=== PATIENT | female | born 1970 | race Caucasian/White ===

== ENCOUNTER 2017-09-28 09:12 | Emergency (ER) | payer MEDICARE, MEDICAID, SELFPAY ==
[2017-09-28 09:18] VITALS: BP 127/98; PULSE 90; RESP 23; TEMP 36.9; O2SAT 98; BMI 31.3
[2017-09-28 09:22] VITALS: BP 127/98; PULSE 95; RESP 18; TEMP 36.9; O2SAT 97
--- NOTE | 2017-09-28 09:39 | ED.DCSUM_ITS ---
- ER Visit Summary Date of Service: 09/28/17 Chief Complaint: Syncope History of Present Illness: The patient is a [address] Morrison. She reports that she had surgery on her left wrist August 05. Since that time she has had multiple episodes of syncope. States that some days this does not happen at all. Some days she wakes up on the floor 1-2 hours later. This can occur when she is standing or sitting. She does admit to being lightheaded at times and it does worsen once he stands. She denies any chest pain, palpitations, shortness of breath. Review of systems: General: No fever, chills, cold sweats. Cardiovascular: No chest pain, palpitations. Respiratory: No cough, shortness of breath, dyspnea on exertion. Gastrointestinal: No abdominal pain, nausea, vomiting, diarrhea, melena, or hematochezia. Genitourinary: No dysuria, frequency, hematuria. Skin: No rash. Neuro: No headache, numbness, weakness. Physical Examination: Vitals: Stable. Afebrile. General: Well-nourished and well-developed. Head: Normocephalic atraumatic. Neck: Supple, no lymphadenopathy. No JVD. Nontender. Cardiovascular: Regular rate and rhythm. No murmurs. Respiratory: No respiratory distress. Clear to auscultation bilaterally. Abdominal: Soft, nontender, nondistended, normal bowel sounds. No guarding, rebound, or peritoneal signs. Back: Nontender. Extremities: Nontender, no edema. Skin: Normal color, no rash. Neurologic: Alert and oriented ?3. Cranial nerves II through XII are intact. Normal strength and sensation. Psych: Normal affect. Test Results: EKG is sinus at [address] changes. This is unchanged from March 2016. Emergency Department Course and Treatment: Patient has refused an IV and blood work. States that she needs to leave in for 30 minutes. I discussed her the fact that the blood work would not be done by that time. She has prior commitments that she cannot miss. She does understand that this could be a problem with the rhythm of her heart, due to a blood clot, and/or life- threatening. She is capable of understanding and repeating this. She is able of signing out AGAINST MEDICAL ADVICE. Treatment Plan: Patient reports that after this appointment she is going to go to another emergency department closer to home. She is instructed to follow-up as soon as possible. Return to the emergency department at any time for evaluation. Disposition: To home in improved and stable condition. Impression: 1. Syncope, recurrent. 2. History of PE on Coumadin. 3. Left AMA. This note was generated with [employer] dictation software. It may contain incorrect words, spelling, and punctuation that were not noted in review of the chart prior to signing ED Disposition - Plan for ED Patient: Chief Complaint: Syncope Instructions: ED Fainting Unkn Cause Referrals: Luis Miguel Morrison MD [Primary Care Provider] - As soon as possible
--- NOTE | 2017-09-28 10:32 | EKG12_ITS ---
Test Reason : SYNCOPE Blood Pressure : / mmHG Vent. Rate : 097 BPM Atrial Rate : 097 BPM P-R Int : 158 ms QRS Dur : 088 ms QT Int : 378 ms P-R-T Axes : 055 067 058 degrees QTc Int : 480 ms Normal sinus rhythm Prolonged QT Abnormal ECG Confirmed by KAYKAY ESCALANTE ([id number]), editor trade journal LYNNE CESAR ([id number]) on 10/02/2017 9:48:53 AM Referred By: JA Confirmed By:KAYKAY ESCALANTE
== END 2017-09-28 11:50 | disposition left against medical advice (07) ==
LOC: ED 10:58
PROVIDERS: Emergency Provider Emergency Medicine; Family Provider Family Medicine; PCP Family Medicine
DX: R55 Syncope and collapse (principal); Z86.711 Personal history of pulmonary embolism; Z86.718 Personal history of other venous thrombosis and embolism; Z79.01 Long term (current) use of anticoagulants; E03.9 Hypothyroidism, unspecified; K21.9 Gastro-esophageal reflux disease without esophagitis; Z79.899 Other long term (current) drug therapy
CPT/HCPCS: 93005; 99284

== ENCOUNTER → 2018-07-03 15:40 | Outpatient (CLI) | payer MEDICARE, SELFPAY ==
[2018-07-03 16:05] LABS: International Normalized Ratio 0.9; Prothrombin Time (Protime)PT. 12.3 SECONDS (11.7-14.9)
== END ==
PROVIDERS: Family Provider Family Medicine; PCP Family Medicine; Referring Provider Family Medicine; Visit Provider Family Medicine
DX: D68.59 Other primary thrombophilia (principal)
CPT/HCPCS: 85610

== ENCOUNTER → 2018-07-08 14:37 | Outpatient (CLI) | payer MEDICARE, SELFPAY ==
[2018-07-08 16:22] LABS: International Normalized Ratio 1.6; Prothrombin Time (Protime)PT. 19.2 SECONDS (11.7-14.9)
== END ==
PROVIDERS: Family Provider Family Medicine; PCP Family Medicine; Referring Provider Family Medicine; Visit Provider Family Medicine
DX: D68.59 Other primary thrombophilia (principal); Z79.01 Long term (current) use of anticoagulants
CPT/HCPCS: 85610

== ENCOUNTER → 2018-07-13 10:59 | Outpatient (CLI) | payer MEDICARE, SELFPAY ==
[2018-07-13 11:36] LABS: International Normalized Ratio 1.3; Prothrombin Time (Protime)PT. 15.7 SECONDS (11.7-14.9)
== END ==
PROVIDERS: Family Provider Family Medicine; PCP Family Medicine; Referring Provider Family Medicine; Visit Provider Family Medicine
DX: D68.59 Other primary thrombophilia (principal); Z79.01 Long term (current) use of anticoagulants
CPT/HCPCS: 36415; 85610

== ENCOUNTER → 2018-07-23 16:35 | Outpatient (CLI) | payer MEDICARE, SELFPAY ==
[2018-07-23 17:11] LABS: International Normalized Ratio 2.2; Prothrombin Time (Protime)PT. 24.4 SECONDS (11.7-14.9)
== END ==
PROVIDERS: Family Provider Family Medicine; PCP Family Medicine; Referring Provider Family Medicine; Visit Provider Family Medicine
DX: Z79.01 Long term (current) use of anticoagulants (principal); D68.59 Other primary thrombophilia
CPT/HCPCS: 85610

== ENCOUNTER → 2018-08-05 16:05 | Outpatient (CLI) | payer MEDICARE, SELFPAY ==
[2018-08-05 16:51] LABS: International Normalized Ratio 1.3; Prothrombin Time (Protime)PT. 16.5 SECONDS (11.7-14.9)
== END ==
PROVIDERS: Family Provider Family Medicine; PCP Family Medicine; Referring Provider Family Medicine; Visit Provider Family Medicine
DX: D68.59 Other primary thrombophilia (principal); Z79.01 Long term (current) use of anticoagulants
CPT/HCPCS: 85610

== ENCOUNTER → 2018-12-12 07:48 | Outpatient (CLI) | payer MEDICARE, MEDICAID, SELFPAY ==
[2018-11-22 08:22] VITALS: BMI 35.2
--- NOTE | 2018-12-12 | ASPIG_PTH ---
PATIENT: WINSTON BOWLING LOC: U#:[id number] AGE/SX: 55/F ROOM: RE12/12/[address]: Dr. Isaias Paredes MD : 1970 BED: DIS: SPEC #: [id number] RECD: 12/12/18 12:23 STATUS: ANA REDagoberto #: [id number] FRANK: 12/12/18 00:[address]: Isaias Paredes DEPT: CYTOLOGY RECD BY: Raj Yoo ENTERED: 12/12/18 12:24 SP TYPE: ASP OUT OTHR DR: Dr. Luis Miguel Trujillo MD Tissues: A - Thyroid gland, NOS B - Thyroid gland, NOS Procedures: FNA Specimen Adequacy Special Stain Group II Surgery Specimen Level IV Cytology Other HEADER OPERATION: Ultrasound-guided FNA of thyroid PRE-OP DIAGNOSIS: Thyroid nodule TISSUE SUBMITTED: A - Left thyroid, B - Isthmus DIAGNOSIS CYTOLOGY A. Left thyroid nodule, ultrasound-guided FNA (smears, cytospin and cell block): Atypical follicular cells of undetermined significance. Adequate for evaluation. B. Isthmic nodule, ultrasound-guided FNA (smears, cytospin and cell block): Cellular smears, suspicious for follicular neoplasm. Adequate for evaluation. SJ:rg 12/13/18 COMMENT The specimen is evaluated at the time of FNA by Dr. Batista. Immediate Evaluation: A. Adequate for evaluation. Follicular cells present. B. Adequate for evaluation. Follicular cells present. Correlation with clinical, radiologic findings and appropriate follow up are necessary. Case has been reviewed in consultation with Dr. Hart who concurs with the above diagnosis. IDC:AM CYTOLOGY STUDY Slides are reviewed. CYTOLOGY GROSS A - Received in three passes is 0.5 ml of bloody fluid labeled with the patient's name, and designated left thyroid. Nine imprints and six paps are made from the submitted fluid and the rest is added to CytoLyt for cell block preparation. Submitted for cytology study. B - Received in three passes is 0.5 ml of bloody fluid labeled with the patient's name, and designated isthmus. Eight imprints and seven paps are made from the submitted fluid and the rest is added to CytoLyt for cell block preparation. Submitted for cytology study. / SJ:rg 12/12/18 TC:5 CPT: 91432 x2, 47469 x2, 27861 x2, 37170 x2 ADDENDUM ADDENDUM ADDENDUM ADDENDUM ADDENDUM ADDENDUM ADDENDUM ADDENDUM ADDENDUM ADDENDUM ADDENDUM ADDENDUM ADDENDUM ADDENDUM ADDENDUM 01/02/2019 11:01 ADDENDUM 01/02/2019 11:01 ADDENDUM 01/02/2019 11:01 ADDENDUM 01/02/2019 11:01 ADDENDUM 01/02/2019 11:01 This addendum is added to incorporate an outside pathology consultation report. The case was examined at [facility] (#[id number]) and the following diagnosis was rendered. A. Thyroid, left nodule, ultrasound-guided fine needle aspiration: Benign. [place] follicular epithelium, colloid, rare lymphocytes and plasma cell. B. Isthmus nodule, ultrasound-guided fine needle aspiration: Benign. Moderately cellular aspirate with bland follicular epithelium, oncocytes, colloid and lymphocytes. Please see complete above mentioned consultation report in EMR
--- NOTE | 2018-12-12 07:54 | US_ITS ---
STUDY: THYROID ULTRASOUND REASON FOR EXAM: Female, 48 years old. Ultrasound guided needle biopsy of a nodule in the isthmus as well as the left lobe of the thyroid. TECHNIQUE: Ultrasound evaluation of the thyroid was performed with real-time and static lenz-scale imaging. COMPARISON: None. FINDINGS: Under direct sonographic guidance, the surgeon performed needle biopsy of the echogenic nodule in the left lobe of the thyroid as well as in the right side of the isthmus. US/FNA 1st Biopsy w/ US IMPRESSION: Successful ultrasound-guided thyroid biopsy. Electronically Signed: Juan Deleon, at 15:09 EDT , Service support ,
--- NOTE | 2018-12-12 09:42 | PCM.OPRPT ---
Problem List (1) Multinodular goiter (nontoxic) Status: Acute Report of Operation Date of Procedure: 12/12/18 Pre-Operative Diagnosis: Multinodular goiter Post-Operative Diagnosis: Same Surgery/Procedure Performed:: Bilateral ultrasound-guided fine-needle aspiration of multinodular goiter Type of Anesthesia:: Local Description of Procedure: Patient was brought into the ultrasound suite left side of the neck was ultrasound lesion was identified. I prepped the neck with Betadine. I injected 1% lidocaine plain. Under ultrasound guidance I took 3 passes with a 22-gauge needle gave them to the pathologist. Ultrasounding the right side of the isthmus the nodule was identified I injected 1% lidocaine plain under ultrasound guidance I took 3 passes with a 22-gauge needle. I gave this to the pathologist. Pathologist said both specimens were adequate. Sterile dressings were applied and the patient tolerated the procedure well - Admit VTE Documentation VTE Present on Admission: No VTE Mechan Device Prophylaxis: None VTE Pharm Prophylaxis ordered?: No Reason prophylaxis not ordered:: Treatment Not Indicated
== END ==
PROVIDERS: Family Provider Family Medicine; PCP Family Medicine; Referring Provider Surgery; Visit Provider Surgery
DX: E04.2 Nontoxic multinodular goiter (principal)
CPT/HCPCS: 10005; 10006; 88161; 88172; 88305; 88313

== ENCOUNTER → 2019-07-11 12:09 | Outpatient (CLI) | payer MEDICARE, MEDICAID, SELFPAY ==
[2018-12-17 09:44] VITALS: BMI 35.2
[2019-07-11 12:32] LABS: International Normalized Ratio 2.9; Prothrombin Time (Protime)PT. 30.5 SECONDS (11.7-14.9)
== END ==
PROVIDERS: Family Provider Family Medicine; PCP Family Medicine; Referring Provider Registered Nurse; Visit Provider Registered Nurse
DX: D68.59 Other primary thrombophilia (principal)
CPT/HCPCS: 85610

== ENCOUNTER 2022-07-06 12:46 | Inpatient (IN) | payer MEDICARE, MEDICAID, SELFPAY ==
[2022-07-06] VITALS (16 sets, daily range): BP systolic 91–125; BP diastolic 76–88; PULSE 90–119; RESP 12–26; TEMP 36.3–36.7; O2SAT 94–100; BMI 36.5; BMI 37.7
--- NOTE | 2022-07-06 13:32 | EKG12_ITS ---
Test Reason : SOB Blood Pressure : / mmHG Vent. Rate : 099 BPM Atrial Rate : 099 BPM P-R Int : 148 ms QRS Dur : 084 ms QT Int : 366 ms P-R-T Axes : 033 058 057 degrees QTc Int : 469 ms Normal sinus rhythm Low voltage QRS Borderline ECG Confirmed by SANAM JOHN, SHIMON ([id number]), editor publications NAEEM PANTOJA ([id number]) on 07/10/2022 1:12:33 PM Referred By: CLARISSA Confirmed By:SHIMON MARION MD
[2022-07-06] MEDS: Albuterol 2.5 MG/3 ML VIAL.NEB. INHALATION ×2 (13:43→16:05)
[2022-07-06] MEDS: Ipratropium/Albuterol Sulfate 3 ML AMPUL.NEB INHALATION ×3 (13:43→23:20)
--- NOTE | 2022-07-06 13:57 | RAD_ITS ---
STUDY: X-RAY CHEST REASON FOR EXAM: Female, 52 years old. SOB and sore throat. TECHNIQUE: Single AP portable view of the chest. COMPARISON: Comparison is made with prior study dated 08/27/2015. FINDINGS: EKG electrodes are seen. The lungs are clear and expanded. There is no demonstrated pleural abnormality. Normal size heart. Normal mediastinum and pawan. Normal visualized pulmonary arteries. Normal visualized aortic arch and descending thoracic aorta. Normal visualized thoracic spine. Normal visualized ribs, clavicles, and shoulders. There is evidence of a hiatal hernia. RAD/Chest 1 View (Portable) IMPRESSION: I have hernia. The lungs are clear. Electronically Signed: Juan Deleon MD at 14:16 EDT ,
[2022-07-06] MEDS: MethylPREDNISolone 125 MG/2 ML Vial IV (14:01)
[2022-07-06 14:07] LABS: Absolute Lymphocyte Count 1.89 X10^3/uL (0.83-4.51); Absolute Neutrophil Count 4.6 X10^3/uL (2.0-7.7); Basophil# 0.06 X10^3/uL; Basophil% 0.8 % (0-1); Eosinophil# 0.31 X10^3/uL; Eosinophils% 3.9 % (0-5); Hematocrit 47.8 % (37-47); Hemoglobin 15.9 g/dL (12.0-15.0); Lymphocyte # 1.89 X10^3/ul (0.83-4.51); Mean Corp Hgb Conc 33.3 g/dL (32-36); Mean Corpuscular Hgb 30.5 pg (27.0-32.0); Mean Corpuscular Volume 91.6 fL (81-99); Mean Platelet Vol. 9.7 fl (6.2-12.0); Monocyte# 0.96 X10^3/uL; Monocyte% 12.2 % (0-10); NRBC Flagged by Analyzer 0 % (0-5); Neutrophil # 4.61 X10^3/uL (2.7-7.7); Neutrophil % 58.7 % (47-70); Platelet Count 279 K/mm3 (150-450); RBC Distribution Width CV 13.5 % (11.6-14.6); RBC Distribution Width SD 46.2 fl (35.1-43.9); Red Blood Count 5.22 M/mm3 (4.2-5.4); White Blood Count 7.9 K/mm3 (4.4-11.0)
[2022-07-06 14:25] LABS: Anion Gap 8 (5-15); BUN 17 mg/dL (7-18); BUN/Creat Ratio 15.2 RATIO (10-20); Calcium,Total 9.3 mg/dL (8.5-10.1); Chloride 105 mmol/L (98-107); Creatinine, Serum 1.12 mg/dL (0.55-1.02); EST Glomerular Filtration Rate 55 mL/min (>60); Est Glom Filt Rate - Afr Amer 66 mL/min (>60); Estimated Creatinine Clearance 60.62 ml/min; Glucose 101 mg/dL (74-106); Potassium 3.6 mmol/L (3.5-5.1); Sodium Level 140 mmol/L (136-145); Troponin-I HS 4 pg/mL (3.0-54.0)
[2022-07-06 14:27] LABS: International Normalized Ratio 2.6; Prothrombin Time (Protime)PT. 27.5 SECONDS (11.7-14.9)
[2022-07-06 14:32] LABS: Lactic Acid 1.6 mmol/L (0.4-1.9)
--- NOTE | 2022-07-06 15:52 | PCM.HP.STD ---
[facility] - General General Date of Admission: 07/06/22 Date of Service: 07/06/22 Chief Complaint: Dyspnea, cough, sore throat, hypoxia at UC 83% on RA. HPI Narrative The patient is a 52 y/o F w/ PMHx: Obesity, Anxiety and Depression/Histrionic personality disorder, Hx VTE (PE, DVT), Asthma, Tobacco use, Hx Hypercoagulable state, Diabetes mellitus type II with neuropathy, Thyroid CA s/p partial thyroidectomy with resulting hypothyroidism, Hx prior R lung abscess, EDITH, GERD who presents to the [facility] ED on 07/06/22 with history of 2 to 3-day history of progressively worsening fatigue, malaise, sore throat, cough as well as dyspnea and wheezing with urgent care evaluation on day of presentation with noted oxygenation 83% on room air at that time with EMS call with DuoNeb's administered on route. Work-up in the ED included T97.4, heart rate initially 119, BP 95/77, respiratory rate 24, initially noted to be 99% on 15 L simple mask with reportedly 83% oxygenation outside urgent care facility prior to transition, currently 96% on 4 L nasal cannula, CBC with WBC 7.9, hemoglobin 15.9, platelet 279 without marked shift, INR 2.6, BMP with BUN/creat 17/1.12, lactic acid 1.6, troponin 4, rapid COVID antigen and influenza negative, chest x-ray with no acute cardiopulmonary findings, evidence of hiatal hernia, full respiratory viral panel pending per ED physician. In the ED patient ministered Solu-Medrol 125 mg IV x1, DuoNeb therapy and albuterol. [facility] Medical History (Updated 07/06/22 @ 18:[address] Soha Herrmann MD) Anxiety Asthma Diabetes mellitus type 2 in obese Diabetic neuropathy DJD (degenerative joint disease) DM2 (diabetes mellitus, type 2) Fatty liver disease, nonalcoholic GERD (gastroesophageal reflux disease) history of R lung abscess Histrionic personality disorder HLD (hyperlipidemia) HTN (hypertension) Hypercoagulable state Hypothyroidism Morbid obesity Narcotic dependence Obesity EDITH treated with BiPAP possible SLE Pulmonary embolism Thyroid cancer Home Medications albuterol sulfate 90 mcg/actuation aerosol inhaler 1 puff inhalation Q4H PRN PRN Sob &/Or Wheezing 01/15/14 [History Last Taken 07/06/22] cholecalciferol (vitamin D3) 250 mcg (10,000 unit) capsule 3,000 unit PO DAILY supplement 01/15/14 [History Last Taken 07/05/22] levothyroxine 175 mcg tablet 200 mcg PO DAILY thyroid 01/15/14 [History Last Taken 07/06/22] mometasone-formoterol HFA 200 mcg-5 mcg/actuation aerosol inhaler 2 inhaler inhalation BID SOB 01/15/14 [History Last Taken 07/06/22] pantoprazole 20 mg tablet,delayed release 40 mg PO BID gerd 01/15/14 [History Last Taken 07/06/22] potassium chloride 20 mEq tablet,extended release(part/cryst) 10 meq PO DAILY supplement 01/15/14 [History Last Taken 07/05/22] cyanocobalamin (vitamin B-12) 1,000 mcg/mL oral drops 1,000 mcg PO QODAY supplement 05/01/15 [History Last Taken 3 Days Ago ~07/03/22] tiotropium bromide 18 mcg capsule with inhalation device 1 puff inhalation DAILY SOB 05/01/15 [History Last Taken 07/06/22] warfarin 5 mg tablet 10 mg PO DAILY blood clots 05/01/15 [History Last Taken 07/05/22] calcium carbonate 600 mg calcium (1,500 mg) tablet 600 mg PO PRN PRN Gastric Reflux 08/27/15 [History Last Taken 07/05/22] enoxaparin 80 mg/0.8 mL subcutaneous syringe 70 mg subcut Q12@0600,1800 PRN blood clot 03/31/16 [History Last Taken Unknown] baclofen 10 mg tablet 10 mg PO TID PRN Back Pain 11/22/18 [History Last Taken 2 Weeks Ago ~06/22/22] buspirone 10 mg tablet 10 mg PO TID neuropathy 11/22/18 [History Last Taken 07/06/22] cetirizine 10 mg tablet (All Day Allergy (cetirizine)) 10 mg PO DAILY allergies 11/22/18 [History Last Taken 07/05/22] albuterol sulfate 90 mcg/actuation aerosol inhaler (Ventolin HFA) 2 puff inhalation PRN PRN Shortness Of Breath 07/06/22 [History Last Taken 07/06/22] famotidine 20 mg tablet 20 mg PO DAILY gerd 07/06/22 [History Last Taken 07/05/22] fluticasone propionate 50 mcg/actuation nasal spray,suspension 2 spray intranasal DAILY allergies 07/06/22 [History Last Taken 07/06/22] hydroxyzine HCl 10 mg tablet 10 mg PO BID mood 07/06/22 [History Last Taken 1 Week Ago ~06/29/22] lisinopril 10 mg tablet 10 mg PO DAILY bp 07/06/22 [History Last Taken 07/05/22] mometasone-formoterol HFA 200 mcg-5 mcg/actuation aerosol inhaler (Dulera) 2 puff inhalation BID sob 07/06/22 [History Last Taken 07/06/22] nortriptyline 25 mg capsule 50 mg PO DAILY neuropathy 07/06/22 [History Last Taken 07/05/22] prednisone 10 mg tablet 10 mg PO DAILY PRN SOB 07/06/22 [History Last Taken Unknown] sumatriptan succinate 50 mg tablet 50 mg PO PRN PRN Migraine Headache 07/06/22 [History Last Taken 1 Week Ago ~06/29/22] warfarin 7.5 mg tablet 7.5 mg PO DAILY blood clots 07/06/22 [History Last Taken 07/04/22] Allergy/AdvReac Type Severity Reaction Status Date / Time acetaminophen [From Vicodin] Allergy Rash Verified 07/06/22 12:47 cefazolin sodium [From Ancef] Allergy Rash Verified 07/06/22 12:47 diphenhydramine HCl Allergy Rash Verified 07/06/22 12:47 [From Benadryl] hydrocodone bitartrate Allergy Rash Verified 07/06/22 12:47 [From Vicodin] morphine Allergy Rash Verified 07/06/22 12:47 tramadol Allergy Rash Verified 07/06/22 12:47 Opioids - Morphine Analogues AdvReac Other Verified 07/06/22 12:47 Family History Mother Asthma Breast cancer Thyroid disorder High cholesterol Father Arthritis Cancer Prostate and lung cancer Hypertension Other Anemia Anesthesia complication Anxiety Autoimmune disorder Blood clot in vein Diabetes Myocardial infarction Osteoporosis Respiratory disease STD (sexually transmitted disease) Severe allergy Surgical History (Updated 07/06/22 @ 17:[address] Soha Herrmann MD) History of bariatric surgery History of History of carpal tunnel release History of foot surgery History of hysterectomy History of partial thyroidectomy Social History (Updated 07/06/22 @ 18:[address] Soha Herrmann MD) Smoking Status: Former smoker how long ago did patient quit smoking: Quit 25 yrs prior, smoked from age 22 until quit, 1/2-1 ppd. alcohol intake: current alcohol intake frequency: 0-2 drinks per day substance use type: does not use what type of physical activity do you participate in: none ROS ROS Narrative Admission Review of Systems: CONSTITUTIONAL: No weight loss, fever,+ chills, weakness or fatigue. HEENT: + Headache, congestion, rhinorrhea, sore throat, right greater than left however bilateral ear discomfort. Eyes: No visual loss, blurred vision, double vision or yellow sclerae. Ears, Nose, Throat: No hearing loss, sneezing. SKIN: No rash or itching, lesions, wounds. CARDIOVASCULAR: No chest pain, chest pressure or chest discomfort, palpitations, edema, orthopnea, syncopal events. RESPIRATORY: +shortness of breath, cough without marked sputum, wheezing, No hemoptysis. GASTROINTESTINAL: +anorexia, No nausea, vomiting or diarrhea, abdominal pain, melena, BRBPR. GENITOURINARY: No dysuria, frequency, urgency or retention. NEUROLOGICAL: No headache, dizziness, syncope, paralysis, ataxia, numbness or tingling in the extremities, focal weakness, change in bowel or bladder control, seizure. MUSCULOSKELETAL: + muscle, back pain, joint pain or stiffness. HEMATOLOGIC: No anemia, bleeding or bruising. LYMPHATICS: No enlarged nodes. No history of splenectomy. PSYCHIATRIC: +history of depression or anxiety. ENDOCRINOLOGIC: No reports of sweating, cold or heat intolerance. No polyuria or polydipsia. ALLERGIES: + history of asthma, rhinitis. Vital Signs Vital Signs Vital Signs: 07/06/22 12:48 07/06/22 12:57 07/06/22 13:44 Temperature 97.4 F L Temperature Source Temporal Pulse Rate 119 H 106 H Respiratory Rate 24 H 20 H Respiratory Effort Short of Breath Labored Respiratory Depth Shallow Respiratory Pattern Tachypnea Normal Blood Pressure 95/77 Blood Pressure Mean 83 Pulse Ox 99 Oxygen Delivery Method Simple Mask Nasal Cannula Oxygen Flow Rate (L/min) 15 4 07/06/22 14:43 07/06/22 15:47 Temperature Temperature Source Pulse Rate 101 H 94 Respiratory Rate 20 H 26 H Respiratory Effort Respiratory Depth Respiratory Pattern Blood Pressure 91/81 H Blood Pressure Mean 84 Pulse Ox 95 95 Oxygen Delivery Method Nasal Cannula Nasal Cannula Oxygen Flow Rate (L/min) 4 4 Weight Weight: 240 lb Body Mass Index (BMI) 36.5 Physical Exam Narrative Physical Examination: General: Awake, alert, oriented x 3 and cooperative, seated upright in the ED bed, fatigued, still having some accessory muscle usage and increased respiratory rate, oxygenation significantly improved since initial presentation as had been in the low 80s on room air and with any attempted de-escalate has been similarly low. Skin: Normal color, normal turgor, no icterus, no cyanosis. HEENT: AT/NC, EOMI, PERRLA, dry MM, no carotid bruits or JVD noted. Lungs: Significantly diminished, tight, increased work of breathing and some accessory muscle usage still present, still some respiratory distress although improving, no obvious rales or rhonchi, occasional wheeze but very distant Heart: Mildly tachycardic with regular rhythm; no gallop, rub audible. Abdomen: Soft, obese, NTTP, ND, distant normal BS, no HSM. Extremities: No cyanosis, clubbing, or edema. Neurological: Patient awake, alert, oriented as noted, cognitive function intact; pupils equally reactive to light and accommodation, cranial nerves II-XII grossly normal, moving all 4 extremities, no focal deficits, strength severely globally Beth secondary to acute presentation. Psychiatric: Affect appears fatigued, ill-appearing, respiratory distress evident but improving, no acute evidence of depressive or anxiety feelings. Results Lab / Micro Data Result Diagrams: 07/06/22 13:00 07/06/22 13:00 Labs: Laboratory Results - last 24 hr 07/06/22 13:00: WBC 7.9, RBC 5.22, Hgb 15.9 H, Hct 47.8 H, MCV 91.6, MCH 30.5, MCHC 33.3, RDW Std Deviation 46.2 H, RDW Coeff of Santhosh 13.5, Plt Count 279, MPV 9.7, Immature Gran % (Auto) 0.400, Neut % (Auto) 58.7, Lymph % (Auto) 24.0, [place] % (Auto) 12.2 H, Eos % (Auto) 3.9, Baso % (Auto) 0.8, Absolute Neuts (auto) 4.6, Absolute Lymphs (auto) 1.89, Nucleated RBC % 0 07/06/22 13:00: PT 27.5 H, INR 2.6 07/06/22 13:00: Sodium 140, Potassium 3.6, Chloride 105, Carbon Dioxide 27.0, Anion Gap 8, BUN 17, Creatinine 1.12 H, Estim Creat Clear Calc 60.62, Est GFR (MDRD) Af Amer 66, Est GFR (MDRD) Non-Af 55 L, BUN/Creatinine Ratio 15.2, Glucose 101, Calcium 9.3, Troponin I High Sens 4 07/06/22 13:45: Lactic Acid 1.6 Micro: Microbiology 07/06/22 13:35 Nasal Secretion SARS-CoV-2 & FLU Antigen (Rapid) - Final Radiology Impression Chest X-Ray 07/06/22 13:57 IMPRESSION: I have hernia. The lungs are clear. Electronically Signed: Juan Deleon MD at 14:16 EDT , Assessment & Plan Assessment/Plan (1) Asthma exacerbation: PLAN: Plan The patient is a 52 y/o F w/ PMHx: Obesity, Anxiety and Depression/Histrionic personality disorder, Hx VTE (PE, DVT), Asthma, Tobacco use, Hx Hypercoagulable state, Diabetes mellitus type II with neuropathy, Thyroid CA s/p partial thyroidectomy with resulting hypothyroidism, Hx prior R lung abscess, EDITH, GERD who presents to the [facility] ED on 07/06/22 with history of 2 to 3-day history of progressively worsening fatigue, malaise, sore throat, cough as well as dyspnea and wheezing with urgent care evaluation on day of presentation with noted oxygenation 83% on room air at that time with EMS call with DuoNeb's administered on route. #1. Acute Hypoxic Respiratory Failure secondary to Acute on chronic Asthma/Possible COPD exacerbation (notable tobacco use hx) with suspected Acute Viral Syndrome associated: Will admit to [facility] telemetry, will initiate on BIPAP as also uses this at home and does appear fatigued, maintain on oxygen with wean as tolerated to room air, will hold home inhalers and in the interim transition to ATC duonebs, PRN albuterol, IV methylprednisolone, HOB, IS parameters, given suspected viral etiology will obtain procalcitonin, sputum culture, COVID PCR and full respiratory viral panel and if there is any indication of a bacterial etiology will initiate antibiotics at that time. #2. Thyroid CA w/ iatrogenic Hypothyroidism: Patient status post prior thyroidectomy however there was a portion that was unable to be extracted secondary to involvement with nerves therefore planned upcoming initiation of radiation therapy 08/2022, will continue home synthroid regimen. Encourage continued follow-up outpatient with oncologist. #3. Diabetes mellitus type II: Noted in history, current list without regimen, hemoglobin A1c requested in the interim maintain on ADA diet, accu checks w/ ISS. #4. Anxiety and depression/histrionic personality disorder: We will continue patient home buspirone, hydroxyzine, nortriptyline home regimen. #5. History of VTE PE, DVT with hypercoagulable state: We will continue patient home Coumadin, INR therapeutic upon presentation, will continue to trend INR. #6. EDITH: BIPAP q HS with usage upon initial presentation given #1 with transition to HS/naps following. #7. Obesity: Weight loss and lifestyle changes encouraged. #8. Former tobacco use: Encourage continued tobacco cessation #9. GERD: We will continue patient on PPI. #10. DVT prophylaxis: SCDs, will continue patient home Coumadin with INR trending, therapeutic upon presentation. #11. CODE status: Patient TRINIDAD is her mother and her daughter she notes and living will is currently in. Discussed CODE status at length including difference between FULL code, DNR-CCA and DNR-CC status. Following discussions about the differences in these status, requested Full Code status. Advanced Care Planning Face to Face Time: 16 minutes. Charges/Coding Visit Charges Inpatient E&M: 17593 Init Hosp L3 Procedures Hospitalists Procedures: 25820 Advncd Care Plan 30 Min
--- NOTE | 2022-07-06 15:58 | EDS_ITS ---
HPI History of Present Illness Chief Complaint: Shortness of Breath Informant: patient Narrative Narrative: Patient tells me her primary complaint is dyspnea. She felt fine on Sunday. Sunday afternoon she had the flu shot. Sunday evening her symptoms started. She states she has myalgias. No real fever. She just feels bad. She has malaise. She states she is not really having chest pain but she feels tight. She is coughing but no sputum production. Of note, she has had multiple pulmonary emboli. But she is on Coumadin, she is very careful about taking it, and she checks her levels at home herself. She normally runs 2.2-2.4 and has not had any lows recently. Patient has had a prior Moderna COVID-vaccine but developed hypertension after that and has not had more. She does not have any known exposure to COVID. Patient does have rescue inhaler and nebulizer at home but feels like is not helping completely. It does improve her symptoms. She does have asthma exacerbations a couple times a year and has been admitted. She also occasionally has had pneumonia but has not been having fevers or sputum production. Patient used to be on home oxygen at 2 L and 4 L at night with BiPAP but states she has not been on this for couple years. But she has been having progressive problems over the last months and is being evidently evaluated for the need for oxygen again. [facility] Medical History ANTICOAGULATION THERAPY Anxiety Anxiety disorder Asthma Chronic respiratory failure Deep venous thrombosis of lower extremity Diabetes mellitus type 2 in obese Diabetic neuropathy DJD (degenerative joint disease) DM2 (diabetes mellitus, type 2) Fatty liver disease, nonalcoholic GERD (gastroesophageal reflux disease) history of R lung abscess Histrionic personality disorder HLD (hyperlipidemia) HTN (hypertension) Hypercoagulable state Hypothyroidism Morbid obesity Narcotic dependence Obesity Obstructive sleep apnea possible SLE Pulmonary embolism Sleep apnea Syncope Thyroid cancer Home Medications albuterol sulfate 90 mcg/actuation aerosol inhaler 1 puff inhalation Q4H PRN PRN Sob &/Or Wheezing 01/15/14 [History Last Taken 05/22/14 08:00 1] cholecalciferol (vitamin D3) 250 mcg (10,000 unit) capsule 3,000 unit PO DAILY 01/15/14 [History Last Taken 05/23/14 08:00 1] gabapentin 300 mg capsule 600 mg PO TIDCM 01/15/14 [History Last Taken 05/23/14 22:00 1] levothyroxine 175 mcg tablet 200 mcg PO DAILY 01/15/14 [History Last Taken 05/23/14 08:00 1] mometasone-formoterol HFA 200 mcg-5 mcg/actuation aerosol inhaler 2 inhaler inhalation BID 01/15/14 [History Last Taken 05/23/14 08:00 1] pantoprazole 20 mg tablet,delayed release 40 mg PO BID 01/15/14 [History Last Taken 05/23/14 08:00 1] potassium chloride 20 mEq tablet,extended release(part/cryst) 10 meq PO DAILY 01/15/14 [History Last Taken 05/23/14 08:00 1] cyanocobalamin (vitamin B-12) 1,000 mcg/mL oral drops 1,000 mcg PO QODAY 05/01/15 [History Last Taken Unknown] tiotropium bromide 18 mcg capsule with inhalation device 1 puff inhalation DAILY 05/01/15 [History Last Taken Unknown] warfarin 5 mg tablet 10 mg PO DAILY 05/01/15 [History Last Taken 03/29/16 5] calcium carbonate 600 mg calcium (1,500 mg) tablet 600 mg PO PRN PRN Gastric Reflux 08/27/15 [History Last Taken Unknown] enoxaparin 80 mg/0.8 mL subcutaneous syringe 70 mg subcut Q12@0600,1800 03/31/16 [History Last Taken Unknown] baclofen 10 mg tablet 10 mg PO TID 11/22/18 [History Last Taken Unknown] buspirone 10 mg tablet 10 mg PO BID 11/22/18 [History Last Taken Unknown] cetirizine 10 mg tablet (All Day Allergy (cetirizine)) 10 mg PO DAILY 11/22/18 [History Last Taken Unknown] albuterol sulfate 90 mcg/actuation aerosol inhaler (Ventolin HFA) 2 puff inhalation PRN PRN Shortness Of Breath 07/06/22 [History Last Taken Unknown] albuterol sulfate 90 mcg/actuation aerosol inhaler (Ventolin HFA) inhalation 07/06/22 [History Last Taken Unknown] famotidine 20 mg tablet 20 mg PO DAILY 07/06/22 [History Last Taken Unknown] fluticasone propionate 50 mcg/actuation nasal spray,suspension 2 spray intranasal DAILY 07/06/22 [History Last Taken Unknown] hydroxyzine HCl 10 mg tablet 10 mg PO BID 07/06/22 [History Last Taken Unknown] lisinopril 10 mg tablet 10 mg PO DAILY 07/06/22 [History Last Taken Unknown] mometasone-formoterol HFA 200 mcg-5 mcg/actuation aerosol inhaler (Dulera) inhalation 07/06/22 [History Last Taken Unknown] nortriptyline 25 mg capsule 25 mg PO DAILY 07/06/22 [History Last Taken Unknown] prednisone 10 mg tablet 10 mg PO DAILY 07/06/22 [History Last Taken Unknown] sumatriptan succinate 50 mg tablet 50 mg PO PRN PRN Migraine Headache 07/06/22 [History Last Taken Unknown] warfarin 7.5 mg tablet 7.5 mg PO DAILY 07/06/22 [History Last Taken Unknown] Allergy/AdvReac Type Severity Reaction Status Date / Time acetaminophen [From Vicodin] Allergy Rash Verified 07/06/22 12:47 cefazolin sodium [From Ancef] Allergy Rash Verified 07/06/22 12:47 diphenhydramine HCl Allergy Rash Verified 07/06/22 12:47 [From Benadryl] hydrocodone bitartrate Allergy Rash Verified 07/06/22 12:47 [From Vicodin] morphine Allergy Rash Verified 07/06/22 12:47 tramadol Allergy Rash Verified 07/06/22 12:47 Opioids - Morphine Analogues AdvReac Other Verified 07/06/22 12:47 Family History Mother Asthma Breast cancer Thyroid disorder High cholesterol Father Arthritis Cancer Prostate and lung cancer Hypertension Other Anemia Anesthesia complication Anxiety Autoimmune disorder Blood clot in vein Diabetes Myocardial infarction Osteoporosis Respiratory disease STD (sexually transmitted disease) Severe allergy Surgical History History of bariatric surgery History of History of carpal tunnel release History of foot surgery History of hysterectomy Social History Smoking Status: Former smoker alcohol intake: current alcohol intake frequency: 0-2 drinks per day substance use type: does not use what type of physical activity do you participate in: none ROS ROS ED Constitutional Constitutional ED: Reports other Details: Positive myalgias and fatigue ; Denies chills or fever(s) ENT ENT ED: Reports rhinorrhea; Denies sore throat Cardiovascular Cardiovascular: Denies chest pain, palpitations or racing heartbeat Respiratory/Chest Respiratory/Chest: Reports cough and dyspnea; Denies sputum Gastrointestinal Gastrointestinal: Denies abdominal pain or vomiting Musculoskeletal Musculoskeletal: Reports myalgias Integumentary Denies rash Neurologic Neurologic: Denies headache(s) Endocrine Endocrinology: Denies polydipsia or polyuria Hematologic/Lymphatic Hematologic/Lymphatic: Reports easy bleeding and easy bruising Allergic/Immunologic Allergic/Immunologic ED: Denies urticaria EXAM Physical Exam Const Vital Signs: 07/06/22 12:48 07/06/22 12:57 07/06/22 13:44 Temperature 97.4 F L Temperature Source Temporal Pulse Rate 119 H 106 H Respiratory Rate 24 H 20 H Respiratory Effort Short of Breath Labored Respiratory Depth Shallow Respiratory Pattern Tachypnea Normal Blood Pressure 95/77 Blood Pressure Mean 83 Pulse Ox 99 Oxygen Delivery Method Simple Mask Nasal Cannula Oxygen Flow Rate (L/min) 15 4 07/06/22 14:43 07/06/22 15:47 07/06/22 15:52 Temperature Temperature Source Pulse Rate 101 H 94 94 Respiratory Rate 20 H 26 H 24 H Respiratory Effort Respiratory Depth Respiratory Pattern Blood Pressure 91/81 H Blood Pressure Mean 84 Pulse Ox 95 95 Oxygen Delivery Method Nasal Cannula Nasal Cannula Oxygen Flow Rate (L/min) 4 4 07/06/22 15:53 Temperature Temperature Source Pulse Rate Respiratory Rate Respiratory Effort Respiratory Depth Respiratory Pattern Blood Pressure Blood Pressure Mean Pulse Ox 96 Oxygen Delivery Method Nasal Cannula Oxygen Flow Rate (L/min) 4 Positive well nourished and well developed Constitutional Narrative: Patient does have increased work of breathing and shortened sentences as I walk in the room. Mildly tachycardic. But she is awake alert. She does not appear to be retaining CO2 clinically. General Appearance ED: well developed HEENT Reports moist mucous membranes Eyes General Eye ED: Negative for scleral icterus Neck no meningeal signs and no JVD Resp Resp Narrative: Increased respiratory effort. She is really not moving much air at all. She does have end expiratory wheezing. I do not hear rhonchi. No indication of pain with breathing. Even though she is on 4 L, her saturations are about 91 or 2%. Just having her sit up in bed drop her saturations into the upper 80s but she does recover. Cardio regular rhythm Rate: tachycardic GI non-tender and non-distended Back/Spine no CVA tenderness Extremity normal to inspection Neuro oriented x3 Neuro Narrative: Not sleepy or lethargic Sensorium / Orientation: alert Psych mental status grossly normal Skin General Skin Exam: Negative for jaundice MDM MDM MDM Narrative Medical decision making narrative: X-ray shows no acute process. Her CBC looks normal other than mild elevation in hemoglobin. INR is therapeutic as she had told me. Creatinine shows minimal elevation. Troponin is negative despite having symptoms for several days. Lactate is normal. Patient was doing much better after breathing treatments and steroids. However, I took oxygen off and had her just take a few breaths listening to her. She immediately desatted into the lower 80s. With 4 L back on she immediately came back up. She is actually at about 97% with 4 L now when she was about 91% prior to treatments. I will get her another treatment here. With her significant desaturation I think she does need to come in. Her COVID was negative. I do not think this represents pulmonary emboli. Although she has had though she is not having the typical pain. She has no hemoptysis. And she has had a stable therapeutic INR. Lab Data Attestation: I reviewed the patient's lab results. Labs: Laboratory Results - last 24 hr 07/06/22 07/06/22 07/06/22 13:00 13:00 13:00 WBC 7.9 RBC 5.22 Hgb 15.9 H Hct 47.8 H MCV 91.6 MCH 30.5 MCHC 33.3 RDW Std Deviation 46.2 H RDW Coeff of Santhosh 13.5 Plt Count 279 MPV 9.7 Immature Gran % (Auto) 0.400 Neut % (Auto) 58.7 Lymph % (Auto) 24.0 [place] % (Auto) 12.2 H Eos % (Auto) 3.9 Baso % (Auto) 0.8 Absolute Neuts (auto) 4.6 Absolute Lymphs (auto) 1.89 Nucleated RBC % 0 PT 27.5 H INR 2.6 Sodium 140 Potassium 3.6 Chloride 105 Carbon Dioxide 27.0 Anion Gap 8 BUN 17 Creatinine 1.12 H Estim Creat Clear Calc 60.62 Est GFR (MDRD) Af Amer 66 Est GFR (MDRD) Non-Af 55 L BUN/Creatinine Ratio 15.2 Glucose 101 Lactic Acid Calcium 9.3 Troponin I High Sens 4 07/06/22 13:45 WBC RBC Hgb Hct MCV MCH MCHC RDW Std Deviation RDW Coeff of Santhosh Plt Count MPV Immature Gran % (Auto) Neut % (Auto) Lymph % (Auto) [place] % (Auto) Eos % (Auto) Baso % (Auto) Absolute Neuts (auto) Absolute Lymphs (auto) Nucleated RBC % PT INR Sodium Potassium Chloride Carbon Dioxide Anion Gap BUN Creatinine Estim Creat Clear Calc Est GFR (MDRD) Af Amer Est GFR (MDRD) Non-Af BUN/Creatinine Ratio Glucose Lactic Acid 1.6 Calcium Troponin I High Sens Radiography Diagnostic Testing: Clinical Impression(s) from Imaging Studies Chest X-Ray 07/06/22 13:57 IMPRESSION: I have hernia. The lungs are clear. Electronically Signed: Juan Deleon MD at 14:16 EDT , Chest XR shows no acute pulmonary process. EKG Initial EKG: Comments: EKG done for dyspnea tachycardia read by me shows normal sinus rhythm with overall rate at 99. No ventricular ectopy. Mild nonspecific changes but no sign of acute infarct or ischemia. NM interval, QRS duration and QTc normal. EKG is similar to 1 from 28 September 2017 Discharge Plan Dx/Rx/DC Orders Clinical Impression: Asthma exacerbation, Hypoxia, Warfarin-induced coagulopathy Disposition Disposition: Acute Care Hospital [facility]
[2022-07-06 18:49] LABS: Procalcitonin < 0.04 ng/mL (0.00-0.09)
[2022-07-06] MEDS: 0.9% Normal Saline 1,000 ML 100 ML IV (20:19)
[2022-07-06] MEDS: 0.9% Saline Lock 10 ML Syringe IV (20:19)
[2022-07-06] MEDS: Insulin Lispro 100 UNIT/ML INSULN.PEN SC (20:24)
[2022-07-06] MEDS: busPIRone 5 MG Tablet 10 MG PO (20:26)
[2022-07-06] MEDS: hydrOXYzine 10 MG Tablet PO (20:27)
[2022-07-06] MEDS: Baclofen 10 MG Tablet PO (20:27)
[2022-07-06] MEDS: Pantoprazole Sodium 40 MG Tablet PO (20:28)
[2022-07-06] MEDS: Nortriptyline 25 MG Capsule PO (20:35)
[2022-07-06 20:51] LABS: Bedside Glucose 301 mg/dL (74-106)
[2022-07-07] VITALS (23 sets, daily range): BP systolic 122–146; BP diastolic 65–109; PULSE 84–113; RESP 12–28; TEMP 36.1–37.1; O2SAT 93–98
[2022-07-07] MEDS: Baclofen 10 MG Tablet PO ×3 (06:33→22:26)
[2022-07-07] MEDS: 0.9% Saline Lock 10 ML Syringe IV ×3 (06:33→22:26)
[2022-07-07] MEDS: Levothyroxine 100 MCG Tablet 200 MCG PO (06:33)
[2022-07-07] MEDS: guaiFENesin 10 ML UDC (200MG/10ML) 20 ML PO (06:48)
[2022-07-07 07:00] LABS: Bedside Glucose 128 mg/dL (74-106)
[2022-07-07 07:12] LABS: Absolute Lymphocyte Count 1.04 X10^3/uL (0.83-4.51); Absolute Neutrophil Count 4.8 X10^3/uL (2.0-7.7); Basophil# 0.01 X10^3/uL; Basophil% 0.2 % (0-1); Hematocrit 39.9 % (37-47); Hemoglobin 13.5 g/dL (12.0-15.0); Lymphocyte # 1.04 X10^3/ul (0.83-4.51); Lymphocyte % 16.4 % (19-41); Mean Corp Hgb Conc 33.8 g/dL (32-36); Mean Corpuscular Hgb 30.4 pg (27.0-32.0); Mean Corpuscular Volume 89.9 fL (81-99); Mean Platelet Vol. 9.4 fl (6.2-12.0); Monocyte# 0.46 X10^3/uL; Monocyte% 7.2 % (0-10); NRBC Flagged by Analyzer 0 % (0-5); Neutrophil # 4.81 X10^3/uL (2.7-7.7); Neutrophil % 75.7 % (47-70); Platelet Count 248 K/mm3 (150-450); RBC Distribution Width CV 13.8 % (11.6-14.6); RBC Distribution Width SD 46.1 fl (35.1-43.9); Red Blood Count 4.44 M/mm3 (4.2-5.4); White Blood Count 6.4 K/mm3 (4.4-11.0)
[2022-07-07] MEDS: Ipratropium/Albuterol Sulfate 3 ML AMPUL.NEB INHALATION ×5 (07:19→23:38)
--- NOTE | 2022-07-07 07:32 | PN.HOSP_ITS ---
Subjective Subjective Patient is a 52-year-old lady who presented with progressive shortness of breath and assessment of acute asthma exacerbation made admitted to regular nursing floor for further management Objective Data Objective Data Vital Signs: Vital Signs Temp Pulse Resp BP Pulse Ox O2 Del Method O2 Flow Rate 97.0 F L 90 17 130/87 H 96 Bi-pap 4.5 07/07/22 03:47 07/07/22 04:50 07/07/22 04:50 07/07/22 03:47 07/07/22 04:50 07/07/22 03:47 07/06/22 20:40 FiO2 40 07/07/22 04:50 Oxygen Flow Rate (L/min) 4.5 Oxygen Delivery Method Bi-pap Weight: 112.4 kg Body Mass Index (BMI) 37.7 Intake & Output: Intake and Output for Last 24 Hours 07/05/22 07/06/22 07/07/22 23:59 23:59 23:59 Intake Total 200 / 200 1000 / 1000 Balance 200 / 200 1000 / 1000 Lab / Micro Data Result Diagrams: 07/07/22 06:30 07/07/22 05:55 Labs: Laboratory Results - last 24 hr 07/06/22 13:00: WBC 7.9, RBC 5.22, Hgb 15.9 H, Hct 47.8 H, MCV 91.6, MCH 30.5, M CHC 33.3, RDW Std Deviation 46.2 H, RDW Coeff of Santhosh 13.5, Plt Count 279, MPV 9.7, Immature Gran % (Auto) 0.400, Neut % (Auto) 58.7, Lymph % (Auto) 24.0, [place] % (Auto) 12.2 H, Eos % (Auto) 3.9, Baso % (Auto) 0.8, Absolute Neuts (auto) 4.6, Absolute Lymphs (auto) 1.89, Nucleated RBC % 0 07/06/22 13:00: PT 27.5 H, INR 2.6 07/06/22 13:00: Sodium 140, Potassium 3.6, Chloride 105, Carbon Dioxide 27.0, Anion Gap 8, BUN 17, Creatinine 1.12 H, Estim Creat Clear Calc 60.62, Est GFR (MDRD) Af Amer 66, Est GFR (MDRD) Non-Af 55 L, BUN/Creatinine Ratio 15.2, Glucose 101, Calcium 9.3, Troponin I High Sens 4 07/06/22 13:45: Lactic Acid 1.6 07/06/22 17:42: Procalcitonin < 0.04 07/06/22 17:42: COVID-19 (MARIAN) Not Detected 07/06/22 20:01: POC Glucose 301 H 07/07/22 06:30: WBC 6.4, RBC 4.44, Hgb 13.5, Hct 39.9, MCV 89.9, MCH 30.4, MCHC 33.8, RDW Std Deviation 46.1 H, RDW Coeff of Santhosh 13.8, Plt Count 248, MPV 9.4, Immature Gran % (Auto) 0.500, Neut % (Auto) 75.7 H, Lymph % (Auto) 16.4 L, [place] % (Auto) 7.2, Eos % (Auto) 0.0, Baso % (Auto) 0.2, Absolute Neuts (auto) 4.8, Absolute Lymphs (auto) 1.04, Nucleated RBC % 0 07/07/22 06:32: POC Glucose 128 H Micro: Microbiology 07/06/22 13:57 Mucosa - Nasopharyngeal Respiratory Panel (PCR) - Final Rhinovirus 07/06/22 13:35 Nasal Secretion SARS-CoV-2 & FLU Antigen (Rapid) - Final Radiography Diagnostic Testing: Radiology Impression Chest X-Ray 07/06/22 13:57 IMPRESSION: I have hernia. The lungs are clear. Electronically Signed: Juan Deleon MD at 14:16 EDT , Physical Exam Narrative GENERAL: cooperative but dyspneic at rest HEENT: Atraumatic; normocephalic EYES; Anicteric, Normal Conjunctiva NECK; supple, normal thyroid, RESPIRATORY: Diminished to auscultation, with bilateral wheezes CARDIOVASCULAR: Regular S1 S2, GI: soft, normoactive bowel sounds, : No Renal angle tenderness; EXTREMITIES: No edema, no clubbing, MUSCULOSKELETAL: no muscle wasting NEURO: Awake; no lateralizing signs. SKIN: No Rash PSYCH; Flat affect Assessment & Plan Assessment/Plan (1) Asthma exacerbation: PLAN: Plan Patient is a 52-year-old lady who presented with progressive shortness of breath and assessment of acute asthma exacerbation made admitted to regular nursing floor for further management 1. Acute asthma exacerbation ? Per stated by patient acute rhinovirus infection. Patient has been admitted t o regular nursing floor managed with bronchodilator treatments in addition to systemic steroids 3. Acute rhinovirus infection ? Supportive care 3. Hypothyroidism secondary to thyroidectomy following thyroid CA ? Patient is on levothyroxine will continue 4. History of VTE (previous PE and DVT) ? Patient is on Coumadin. INR on admission was therapeutic serial INR ordered for monitoring 5. Class II obesity with BMI of 37.7 ? Weight loss advised 6. GERD ? Patient PPI 7. Hypertension - Blood pressure controlled, home medications continued with dose adjustment as needed Charges/Coding Visit Charges Inpatient E&M: 33692 Subs Hosp L2
[2022-07-07 07:48] LABS: International Normalized Ratio 2.3; Prothrombin Time (Protime)PT. 24.6 SECONDS (11.7-14.9)
[2022-07-07 07:50] LABS: ALB/GLOB Ratio 0.7 RATIO (0.9-2.4); AST(SGOT) 12 U/L (15-37); Alanine Aminotransfer ALT/SGPT 22 U/L (13-56); Albumin, Serum 3.1 g/dL (3.2-5.0); Alkaline Phosphatase 81 U/L (45-117); Anion Gap 8 (5-15); BUN 23 mg/dL (7-18); BUN/Creat Ratio 33.8 RATIO (10-20); Calcium,Total 8.5 mg/dL (8.5-10.1); Chloride 105 mmol/L (98-107); Creatinine, Serum 0.68 mg/dL (0.55-1.02); EST Glomerular Filtration Rate 97 mL/min (>60); Est Glom Filt Rate - Afr Amer 118 mL/min (>60); Estimated Creatinine Clearance 99.84 ml/min; Globulin 4.3 g/dL (2.2-4.2); Glucose 110 mg/dL (74-106); Potassium 4.3 mmol/L (3.5-5.1); Protein, Total 7.4 g/dL (6.4-8.2); Sodium Level 138 mmol/L (136-145)
[2022-07-07 08:18] LABS: Hemoglobin A1c 5.8 % (3.8-5.6)
--- NOTE | 2022-07-07 09:56 | NURSING ---
This RN is aware of results of the Vital Signs that were taken by [facility] Water Project Manager
[2022-07-07] MEDS: Famotidine 20 MG Tablet PO (10:05)
[2022-07-07] MEDS: hydrOXYzine 10 MG Tablet PO ×3 (10:05→22:26)
[2022-07-07] MEDS: Pantoprazole Sodium 40 MG Tablet PO ×2 (10:05→22:26)
[2022-07-07] MEDS: Fluticasone 0.05% 1 SPRAY NASAL.SRY 2 SPRAY NASAL (10:06)
[2022-07-07] MEDS: Potassium Chloride Oral Tablet 10 MEQ PO (10:06)
[2022-07-07] MEDS: Loratadine 10 MG Tablet PO (10:06)
[2022-07-07] MEDS: Lisinopril 10 MG Tablet PO (10:09)
--- NOTE | 2022-07-07 10:50 | CASEMGMT ---
RN JERALD Face to Face with patient for initial transition planning/care coordination assessment. RN CM introduced self and role at [facility]. Patient lying in bed, alert and oriented. Patient willing to participate in assessment and is able to answer all questions appropriately. Care providers, pharmacy, and demographics verified. Patient wishes to discharge home, denies need for home health at this time. Patient states she has no further needs or concerns at this time. CM to follow for discharge planning needs that may arise. PCP: Ted Specialists: Melchor, animal rides manager; Sandee, oncologist; , Vp Security Preferred Pharmacy: [facility] Insurance: [employer] [facility] Prescription Benefit: yes Living Will/HPOA: yes, but would like to redo them, SW updated LNOK: daughter, mother Living Arrangements: Patient lives alone in a 2 story townhouse with bed and bath setup on first floor. Patient states she is independent at home. Transportation: self, daughter, mother DME/HHC: Patient states she has grab bars and oxygen concentrator that is old and was originally through [employer] almost 20 years ago. Patient states she is to have a sleep study on 07/24. Patient is active with [facility]. No previous HHC or SNF Disposition Plan: Patient to discharge home with family support and follow-up plans in place. Will monitor for home oxygen. Radha BOONE, RN, CM
--- NOTE | 2022-07-07 11:24 | CASEMGMT ---
DIONNE MARQUES into pt room, pt receiving breathing tx. Provided pt with a verbal local in network list of DME companies, pt chose [employer]. Plan to test patient as needing new oxygen d/t age of concentrator. Discussed process of oxygen should pt qualify, pt verbalizes understanding. Pt is in need of pulse ox as well. Pt reports having a sleep study on the . Pt is active with [facility]. Email to palliative that pt is in [facility]. Green sheet on chart for oxygen as well as a pulse ox.
[2022-07-07 11:30] LABS: Bedside Glucose 141 mg/dL (74-106)
[2022-07-07] MEDS: busPIRone 5 MG Tablet 10 MG PO ×2 (11:33→22:25)
--- NOTE | 2022-07-07 14:13 | EKG12_ITS ---
Test Reason : CP Blood Pressure : / mmHG Vent. Rate : 097 BPM Atrial Rate : 097 BPM P-R Int : 172 ms QRS Dur : 088 ms QT Int : 378 ms P-R-T Axes : 051 031 050 degrees QTc Int : 480 ms Normal sinus rhythm Low voltage QRS Inferior infarct , age undetermined Abnormal ECG When compared with ECG of 06-JUL-2022 13:46, MANUAL COMPARISON REQUIRED, DATA IS UNCONFIRMED Confirmed by SANAM JOHN, SHIMON ([id number]), science editor NAEEM PANTOJA ([id number]) on 07/11/2022 1:18:46 PM Referred By: SABINE Confirmed By:SHIMON MARION MD
[2022-07-07 16:50] LABS: Bedside Glucose 140 mg/dL (74-106)
--- NOTE | 2022-07-07 17:24 | CASEMGMT ---
Social Work SW met with pt and assisted in completing Health Care POA naming her daughter Caren Sheikh. Pt states she already has completed a living will. Original to pt and copy on chart. BRIANA Reynoso
[2022-07-07] MEDS: Nortriptyline 25 MG Capsule PO (22:25)
[2022-07-07] MEDS: Insulin Lispro 100 UNIT/ML INSULN.PEN SC (22:30)
[2022-07-07 23:00] LABS: Bedside Glucose 252 mg/dL (74-106)
[2022-07-08] VITALS (17 sets, daily range): BP systolic 111–148; BP diastolic 75–89; PULSE 73–110; RESP 12–26; TEMP 36.8–37.6; O2SAT 90–98
[2022-07-08] MEDS: Levothyroxine 100 MCG Tablet 200 MCG PO (06:23)
[2022-07-08] MEDS: 0.9% Saline Lock 10 ML Syringe IV ×3 (06:24→21:26)
[2022-07-08] MEDS: Baclofen 10 MG Tablet PO ×3 (06:24→21:27)
[2022-07-08 06:51] LABS: Bedside Glucose 126 mg/dL (74-106)
[2022-07-08] MEDS: Ipratropium/Albuterol Sulfate 3 ML AMPUL.NEB INHALATION ×4 (07:44→18:49)
[2022-07-08] MEDS: Potassium Chloride Oral Tablet 10 MEQ PO (08:09)
[2022-07-08] MEDS: busPIRone 5 MG Tablet 10 MG PO ×2 (08:09→21:26)
[2022-07-08] MEDS: Loratadine 10 MG Tablet PO (08:10)
[2022-07-08] MEDS: Famotidine 20 MG Tablet PO (08:10)
[2022-07-08] MEDS: Pantoprazole Sodium 40 MG Tablet PO ×2 (08:10→21:27)
[2022-07-08] MEDS: hydrOXYzine 10 MG Tablet PO ×2 (08:10→21:27)
[2022-07-08] MEDS: Lisinopril 10 MG Tablet PO (08:11)
[2022-07-08] MEDS: Acetaminophen 325 MG Tablet 650 MG PO ×3 (08:12→20:17)
[2022-07-08] MEDS: guaiFENesin 10 ML UDC (200MG/10ML) 20 ML PO ×3 (08:12→18:04)
[2022-07-08] MEDS: Fluticasone 0.05% 1 SPRAY NASAL.SRY 2 SPRAY NASAL (08:14)
[2022-07-08 10:08] LABS: Anion Gap 5 (5-15); BUN 27 mg/dL (7-18); Calcium,Total 8.9 mg/dL (8.5-10.1); Chloride 106 mmol/L (98-107); Creatinine, Serum 0.69 mg/dL (0.55-1.02); EST Glomerular Filtration Rate 95 mL/min (>60); Est Glom Filt Rate - Afr Amer 115 mL/min (>60); Glucose 116 mg/dL (74-106); Potassium 4.8 mmol/L (3.5-5.1); Sodium Level 135 mmol/L (136-145)
[2022-07-08 10:24] LABS: Absolute Lymphocyte Count 1.24 X10^3/uL (0.83-4.51); Absolute Neutrophil Count 7.4 X10^3/uL (2.0-7.7); Basophil# 0.01 X10^3/uL; Basophil% 0.1 % (0-1); Hematocrit 43.3 % (37-47); Hemoglobin 14.4 g/dL (12.0-15.0); Lymphocyte # 1.24 X10^3/ul (0.83-4.51); Lymphocyte % 13.5 % (19-41); Mean Corp Hgb Conc 33.3 g/dL (32-36); Mean Corpuscular Volume 93.1 fL (81-99); Mean Platelet Vol. 9.9 fl (6.2-12.0); Monocyte# 0.45 X10^3/uL; Monocyte% 4.9 % (0-10); NRBC Flagged by Analyzer 0 % (0-5); Neutrophil # 7.44 X10^3/uL (2.7-7.7); Neutrophil % 81.1 % (47-70); Platelet Count 246 K/mm3 (150-450); RBC Distribution Width CV 14.1 % (11.6-14.6); RBC Distribution Width SD 48.5 fl (35.1-43.9); Red Blood Count 4.65 M/mm3 (4.2-5.4); White Blood Count 9.2 K/mm3 (4.4-11.0)
--- NOTE | 2022-07-08 11:54 | PN.HOSP_ITS ---
Subjective Subjective Patient seen and examined. She is still wheezing and has rhonchi. She still coughing. She still feels short of breath. Review of symptoms otherwise negative. She is on 5 L of oxygen. Objective Data Objective Data Vital Signs: Vital Signs Temp Pulse Resp BP Pulse Ox O2 Del Method O2 Flow Rate 98.6 F 91 18 119/86 H 95 Nasal Cannula 5 07/08/22 08:02 07/08/22 11:15 07/08/22 11:15 07/08/22 08:02 07/08/22 11:15 07/08/22 11:15 07/08/22 11:15 FiO2 40 07/08/22 04:42 Oxygen Flow Rate (L/min) 5 Oxygen Delivery Method Nasal Cannula Weight: 244 lb 4.355 oz Body Mass Index (BMI) 37.7 Intake & Output: Intake and Output for Last 24 Hours 07/06/22 07/07/22 07/08/22 23:59 23:59 23:59 Intake Total 200 / 200 2500 / 2500 Balance 200 / 200 2500 / 2500 Lab / Micro Data Result Diagrams: 07/08/22 08:47 07/08/22 08:47 Labs: Laboratory Results - last 24 hr 07/07/22 16:25: POC Glucose 140 H 07/07/22 22:29: POC Glucose 252 H 07/08/22 06:21: POC Glucose 126 H 07/08/22 08:47: WBC 9.2, RBC 4.65, Hgb 14.4, Hct 43.3, MCV 93.1, MCH 31.0, MCHC 33.3, RDW Std Deviation 48.5 H, RDW Coeff of Santhosh 14.1, Plt Count 246, MPV 9.9, Immature Gran % (Auto) 0.400, Neut % (Auto) 81.1 H, Lymph % (Auto) 13.5 L, [place] % (Auto) 4.9, Eos % (Auto) 0.0, Baso % (Auto) 0.1, Absolute Neuts (auto) 7.4, Absolute Lymphs (auto) 1.24, Nucleated RBC % 0 07/08/22 08:47: Sodium 135 L, Potassium 4.8, Chloride 106, Carbon Dioxide 24.0, Anion Gap 5, BUN 27 H, Creatinine 0.69, Estim Creat Clear Calc 98.40, Est GFR (MDRD) Af Amer 115, Est GFR (MDRD) Non-Af 95, BUN/Creatinine Ratio 39.0 H, Glucose 116 H, Calcium 8.9 Micro: Microbiology 07/06/22 13:57 Mucosa - Nasopharyngeal Respiratory Panel (PCR) - Final Rhinovirus 07/06/22 13:35 Nasal Secretion SARS-CoV-2 & FLU Antigen (Rapid) - Final Physical Exam Const alert, oriented x3 and no apparent distress HEENT head/scalp atraumatic, moist oral mucous membranes and oropharynx normal Head and Scalp: normocephalic Mouth: oral and palatal mucosa normal Eyes PERRL, EOMs intact bilaterally and conjunctivae normal Resp Resp Narrative: diminished breath sounds bibasally, bilateral rhonchi and wheezing in all lung f ields. NO crackles. On 5L of oxygen by nasal canula Cardio regular rate, regular rhythm, S1 normal heart sound, S2 normal heart sound and no murmurs GI normal to inspection, nondistended, normoactive bowel sounds, soft to palpation, non-tender and non-distended Extremity normal to inspection, full ROM and no clubbing, cyanosis or edema Neuro oriented x3, CN's II-XII intact bilaterally, moves all extremities and no focal motor deficits Sensorium / Orientation: awake and alert Motor Exam: strength 5/5 throughout Psych affect normal Assessment & Plan Assessment/Plan (1) Asthma exacerbation: (2) Hypoxia: PLAN: Plan #HYpoxia in setting of chronic respiratory failure due to acute asthma exacerbation * Patient still wheezing and coughing. * 5 L of oxygen. Usually wears 2 to 3 L of oxygen at home. * On IV Solu-Medrol. Breathing treatments bronchodilators. * This has been exacerbated by acute rhinovirus infection. Titrate oxygen to maintain saturation above 90%. * Consult pulmonology. Patient says usually follows up with [facility] but wants to transfer all her care to [facility] and wants to see a typists supervisor here. She says she has not had a flareup of asthma in a few years. * #Acute rhinovirus infection: On breathing treatments of bronchodilators. Supportive care. 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 History of DVT and PE: On Coumadin. INR is therapeutic. #Obesity: BMI is 37.7.?Diet and exercise weight loss advised. GERD: On PPI #Hypertension: On lisinopril DVT prophylaxis; on coumadin. INR is therapeutic Charges/Coding Visit Charges Inpatient E&M: 40723 Subs Hosp L3
[2022-07-08 12:16] LABS: Bedside Glucose 120 mg/dL (74-106)
[2022-07-08 13:26] LABS: International Normalized Ratio 2.3; Prothrombin Time (Protime)PT. 24.9 SECONDS (11.7-14.9)
[2022-07-08 17:11] LABS: Bedside Glucose 134 mg/dL (74-106)
[2022-07-08] MEDS: Insulin Lispro 100 UNIT/ML INSULN.PEN SC (21:27)
[2022-07-08] MEDS: Nortriptyline 25 MG Capsule PO (21:27)
[2022-07-08 22:00] LABS: Bedside Glucose 250 mg/dL (74-106)
[2022-07-08] MEDS: MELATONIN 3 MG TABLET PO (23:40)
[2022-07-09] VITALS (17 sets, daily range): BP systolic 122–146; BP diastolic 81–92; PULSE 70–111; RESP 12–24; TEMP 36.4–37; O2SAT 93–98
[2022-07-09] MEDS: Acetaminophen 325 MG Tablet 650 MG PO ×4 (02:51→20:06)
[2022-07-09] MEDS: hydrOXYzine 10 MG Tablet PO ×3 (02:52→20:06)
[2022-07-09] MEDS: guaiFENesin 10 ML UDC (200MG/10ML) 20 ML PO ×3 (02:52→14:47)
[2022-07-09] MEDS: Ipratropium/Albuterol Sulfate 3 ML AMPUL.NEB INHALATION ×5 (03:03→19:15)
[2022-07-09] MEDS: Baclofen 10 MG Tablet PO ×3 (06:30→21:22)
[2022-07-09] MEDS: Levothyroxine 100 MCG Tablet 200 MCG PO (06:30)
[2022-07-09] MEDS: 0.9% Saline Lock 10 ML Syringe IV ×2 (06:30→14:53)
[2022-07-09 06:55] LABS: Bedside Glucose 114 mg/dL (74-106)
--- NOTE | 2022-07-09 07:41 | EX.PCM.CONCC ---
Assessment & Plan Assessment/Plan (1) Asthma exacerbation: PLAN: Plan RECOMMENDATIONS: 1. Wean supplemental oxygen to maintain saturations at or above 90%. 2. Continue scheduled bronchodilators and IV steroids. 3. Encourage incentive spirometer use and mobilize patient as tolerated. 4. Perform walking oximetry study prior to consideration for discharge home. 5. Outpatient pulmonary follow-up in 2 weeks. IMPRESSIONS: 1. Acute asthma exacerbation secondary to rhinovirus URI The patient appears to be slowly improving clinically. Recommend continuing supplemental oxygen to maintain saturations at or above 90%. Continue scheduled bronchodilators and IV steroids. I do anticipate a prolonged steroid taper at discharge. The patient should have a walking oximetry study prior to discharge home. Ideally, she should follow-up in the pulmonary medicine clinic within 2 weeks of discharge. The patient should resume her baseline inhaler regimen including Dulera, low-dose Spiriva and as needed albuterol at the time of her discharge from the hospital. 2. History of recurrent VTE Plan to continue systemic anticoagulation with Coumadin lifelong. 3. Obesity/history of thyroid cancer/history of pulmonary nodules/GERD Complicates care, management, recovery and prognosis. Continue home medications as indicated. This note was generated with [employer] dictation software. It may contain incorrect words, spelling, and punctuation that were not noted in checking the note before signing. HPI Consult Data Date of Consult: 07/09/22 HPI Narrative Reason for Consultation: Asthma exacerbation HPI Narrative: The patient is a 52-year-old female, with a history as outlined below, who presented to the emergency department on July 06 via EMS with worsening shortness of breath. The patient has been followed in the respiratory [place] at [facility], having last been seen in March 2022. She has a known history of asthma and obstructive sleep apnea. Her outpatient inhaler regimen includes Dulera, Spiriva and as needed albuterol. The patient has a remote smoking history. Although she has access to supplemental oxygen in her home environment, she does not regularly utilize any therapy. She additionally endorses the presence of a history of VTE on chronic anticoagulation lifelong. She does report that she is interested in transferring her respiratory care here to [facility]. On presentation to the emergency department, the patient was noted to be afebrile and hemodynamically stable. Initial laboratory evaluation revealed no evidence of a leukocytosis. Initial chemistry profile demonstrated an increased creatinine to 1.12. Lactate was within normal limits. Procalcitonin was normal. COVID PCR was negative. Respiratory viral panel was positive for rhinovirus. Chest imaging demonstrated no acute cardiopulmonary process. The patient was placed on bronchodilators and IV steroids. She was subsequently admitted to the medical surgical floor for further management. This morning, the patient reported feeling the best that she has felt since being admitted to the hospital. [facility] Medical History (Updated 07/06/22 @ 18:[address] Soha Herrmann MD) Anxiety Asthma Diabetes mellitus type 2 in obese Diabetic neuropathy DJD (degenerative joint disease) DM2 (diabetes mellitus, type 2) Fatty liver disease, nonalcoholic GERD (gastroesophageal reflux disease) history of R lung abscess Histrionic personality disorder HLD (hyperlipidemia) HTN (hypertension) Hypercoagulable state Hypothyroidism Morbid obesity Narcotic dependence Obesity EDITH treated with BiPAP possible SLE Pulmonary embolism Thyroid cancer Home Medications albuterol sulfate 90 mcg/actuation aerosol inhaler 1 puff inhalation Q4H PRN PRN Sob &/Or Wheezing 01/15/14 [History Last Taken 07/06/22] cholecalciferol (vitamin D3) 250 mcg (10,000 unit) capsule 3,000 unit PO DAILY supplement 01/15/14 [History Last Taken 07/05/22] levothyroxine 175 mcg tablet 200 mcg PO DAILY thyroid 01/15/14 [History Last Taken 07/06/22] mometasone-formoterol HFA 200 mcg-5 mcg/actuation aerosol inhaler 2 inhaler inhalation BID SOB 01/15/14 [History Last Taken 07/06/22] pantoprazole 20 mg tablet,delayed release 40 mg PO BID gerd 01/15/14 [History Last Taken 07/06/22] potassium chloride 20 mEq tablet,extended release(part/cryst) 10 meq PO DAILY supplement 01/15/14 [History Last Taken 07/05/22] cyanocobalamin (vitamin B-12) 1,000 mcg/mL oral drops 1,000 mcg PO QODAY supplement 05/01/15 [History Last Taken 3 Days Ago ~07/03/22] tiotropium bromide 18 mcg capsule with inhalation device 1 puff inhalation DAILY SOB 05/01/15 [History Last Taken 07/06/22] warfarin 5 mg tablet 10 mg PO DAILY blood clots 05/01/15 [History Last Taken 07/05/22] calcium carbonate 600 mg calcium (1,500 mg) tablet 600 mg PO PRN PRN Gastric Reflux 08/27/15 [History Last Taken 07/05/22] enoxaparin 80 mg/0.8 mL subcutaneous syringe 70 mg subcut Q12@0600,1800 PRN blood clot 03/31/16 [History Last Taken Unknown] baclofen 10 mg tablet 10 mg PO TID PRN Back Pain 11/22/18 [History Last Taken 2 Weeks Ago ~06/22/22] buspirone 10 mg tablet 10 mg PO TID neuropathy 11/22/18 [History Last Taken 07/06/22] cetirizine 10 mg tablet (All Day Allergy (cetirizine)) 10 mg PO DAILY allergies 11/22/18 [History Last Taken 07/05/22] albuterol sulfate 90 mcg/actuation aerosol inhaler (Ventolin HFA) 2 puff inhalation PRN PRN Shortness Of Breath 07/06/22 [History Last Taken 07/06/22] famotidine 20 mg tablet 20 mg PO DAILY gerd 07/06/22 [History Last Taken 07/05/22] fluticasone propionate 50 mcg/actuation nasal spray,suspension 2 spray intranasal DAILY allergies 07/06/22 [History Last Taken 07/06/22] hydroxyzine HCl 10 mg tablet 10 mg PO BID mood 07/06/22 [History Last Taken 1 Week Ago ~06/29/22] lisinopril 10 mg tablet 10 mg PO DAILY bp 07/06/22 [History Last Taken 07/05/22] mometasone-formoterol HFA 200 mcg-5 mcg/actuation aerosol inhaler (Dulera) 2 puff inhalation BID sob 07/06/22 [History Last Taken 07/06/22] nortriptyline 25 mg capsule 50 mg PO DAILY neuropathy 07/06/22 [History Last Taken 07/05/22] prednisone 10 mg tablet 10 mg PO DAILY PRN SOB 07/06/22 [History Last Taken Unknown] sumatriptan succinate 50 mg tablet 50 mg PO PRN PRN Migraine Headache 07/06/22 [History Last Taken 1 Week Ago ~06/29/22] warfarin 7.5 mg tablet 7.5 mg PO DAILY blood clots 07/06/22 [History Last Taken 07/04/22] hydroxyzine HCl 10 mg tablet 10 mg PO BID PRN Anxiety 07/07/22 [History Last Taken Unknown] Allergy/AdvReac Type Severity Reaction Status Date / Time acetaminophen [From Vicodin] Allergy Rash Verified 07/06/22 12:47 cefazolin sodium [From Ancef] Allergy Rash Verified 07/06/22 12:47 diphenhydramine HCl Allergy Rash Verified 07/06/22 12:47 [From Benadryl] hydrocodone bitartrate Allergy Rash Verified 07/06/22 12:47 [From Vicodin] morphine Allergy Rash Verified 07/06/22 12:47 tramadol Allergy Rash Verified 07/06/22 12:47 Opioids - Morphine Analogues AdvReac Other Verified 07/06/22 12:47 Family History Mother Asthma Breast cancer Thyroid disorder High cholesterol Father Arthritis Cancer Prostate and lung cancer Hypertension Other Anemia Anesthesia complication Anxiety Autoimmune disorder Blood clot in vein Diabetes Myocardial infarction Osteoporosis Respiratory disease STD (sexually transmitted disease) Severe allergy Surgical History (Updated 07/06/22 @ 17:[address] Soha Herrmann MD) History of bariatric surgery History of History of carpal tunnel release History of foot surgery History of hysterectomy History of partial thyroidectomy Social History (Updated 07/06/22 @ 18:[address] Soha Herrmann MD) Smoking Status: Former smoker how long ago did patient quit smoking: Quit 25 yrs prior, smoked from age 22 until quit, 1/2-1 ppd. alcohol intake: current alcohol intake frequency: 0-2 drinks per day substance use type: does not use what type of physical activity do you participate in: none ROS ROS Narrative 10 systems were reviewed with pertinent positives as noted in the HPI above. Physical Exam Const Constitutional Narrative: The patient is quite anxious in appearance and intermittently tremulous. HEENT normocephalic and head/scalp atraumatic Eyes PERRL, EOMs intact bilaterally and conjunctivae normal Neck supple General: trachea midline Chest inspection of chest normal Resp Effort and Inspection: tachypneic Auscultation: wheezes and diminished lung sounds Cardio regular rate and regular rhythm GI normal to inspection, nondistended, normoactive bowel sounds Extremity no clubbing, cyanosis or edema Skin no rashes or lesions noted Neuro oriented x3, CN's II-XII intact bilaterally, moves all extremities and no focal motor deficits Psych Mood & Affect: anxious Lab / Micro Data Result Diagrams: 07/08/22 08:47 07/08/22 08:47 Labs: Laboratory Results - last 24 hr 07/08/22 08:47: WBC 9.2, RBC 4.65, Hgb 14.4, Hct 43.3, MCV 93.1, MCH 31.0, MCHC 33.3, RDW Std Deviation 48.5 H, RDW Coeff of Santhosh 14.1, Plt Count 246, MPV 9.9, Immature Gran % (Auto) 0.400, Neut % (Auto) 81.1 H, Lymph % (Auto) 13.5 L, [place] % (Auto) 4.9, Eos % (Auto) 0.0, Baso % (Auto) 0.1, Absolute Neuts (auto) 7.4, Absolute Lymphs (auto) 1.24, Nucleated RBC % 0 07/08/22 08:47: Sodium 135 L, Potassium 4.8, Chloride 106, Carbon Dioxide 24.0, Anion Gap 5, BUN 27 H, Creatinine 0.69, Estim Creat Clear Calc 98.40, Est GFR (MDRD) Af Amer 115, Est GFR (MDRD) Non-Af 95, BUN/Creatinine Ratio 39.0 H, Glucose 116 H, Calcium 8.9 07/08/22 11:39: POC Glucose 120 H 07/08/22 12:30: PT 24.9 H, INR 2.3 07/08/22 16:40: POC Glucose 134 H 07/08/22 21:24: POC Glucose 250 H 07/09/22 06:28: POC Glucose 114 H Charges/Coding Visit Charges Inpatient E&M: 56040 Init Hosp L3
[2022-07-09 08:19] LABS: Absolute Lymphocyte Count 2.31 X10^3/uL (0.83-4.51); Absolute Neutrophil Count 6.6 X10^3/uL (2.0-7.7); Basophil# 0.02 X10^3/uL; Basophil% 0.2 % (0-1); Eosinophil# 0.01 X10^3/uL; Eosinophils% 0.1 % (0-5); Hematocrit 42.2 % (37-47); Hemoglobin 13.7 g/dL (12.0-15.0); Lymphocyte # 2.31 X10^3/ul (0.83-4.51); Lymphocyte % 23.9 % (19-41); Mean Corp Hgb Conc 32.5 g/dL (32-36); Mean Corpuscular Volume 92.3 fL (81-99); Mean Platelet Vol. 9.4 fl (6.2-12.0); Monocyte# 0.69 X10^3/uL; Monocyte% 7.1 % (0-10); NRBC Flagged by Analyzer 0 % (0-5); Neutrophil # 6.57 X10^3/uL (2.7-7.7); Platelet Count 278 K/mm3 (150-450); RBC Distribution Width CV 13.8 % (11.6-14.6); RBC Distribution Width SD 47.4 fl (35.1-43.9); Red Blood Count 4.57 M/mm3 (4.2-5.4); White Blood Count 9.7 K/mm3 (4.4-11.0)
[2022-07-09 08:40] LABS: Anion Gap 7 (5-15); BUN 21 mg/dL (7-18); BUN/Creat Ratio 30.5 RATIO (10-20); Calcium,Total 8.8 mg/dL (8.5-10.1); Chloride 102 mmol/L (98-107); Creatinine, Serum 0.69 mg/dL (0.55-1.02); EST Glomerular Filtration Rate 96 mL/min (>60); Est Glom Filt Rate - Afr Amer 116 mL/min (>60); Glucose 90 mg/dL (74-106); Sodium Level 138 mmol/L (136-145)
[2022-07-09] MEDS: Lisinopril 10 MG Tablet PO (08:51)
[2022-07-09] MEDS: Potassium Chloride Oral Tablet 10 MEQ PO (08:52)
[2022-07-09] MEDS: Loratadine 10 MG Tablet PO (08:52)
[2022-07-09] MEDS: busPIRone 5 MG Tablet 10 MG PO ×2 (08:52→21:22)
[2022-07-09] MEDS: Famotidine 20 MG Tablet PO (08:52)
[2022-07-09] MEDS: Pantoprazole Sodium 40 MG Tablet PO ×2 (08:52→21:22)
[2022-07-09] MEDS: Fluticasone 0.05% 1 SPRAY NASAL.SRY 2 SPRAY NASAL (11:42)
[2022-07-09] MEDS: Insulin Lispro 100 UNIT/ML INSULN.PEN SC ×3 (11:43→21:23)
[2022-07-09 12:11] LABS: Bedside Glucose 154 mg/dL (74-106)
--- NOTE | 2022-07-09 12:36 | PN.HOSP_ITS ---
Subjective Subjective Patient seen and examined. She says she feels her shortness of breath is improving. She does have obviously short of breath and is coughing and wheezing. Review of systems otherwise negative. Objective Data Objective Data Vital Signs: Vital Signs Temp Pulse Resp BP Pulse Ox O2 Del Method O2 Flow Rate 98.6 F 104 H 22 H 140/81 H 95 Nasal Cannula 4 07/09/22 08:45 07/09/22 12:01 07/09/22 10:27 07/09/22 08:45 07/09/22 10:27 07/09/22 10:27 07/09/22 10:27 FiO2 30 07/09/22 05:01 Oxygen Flow Rate (L/min) 4 Oxygen Delivery Method Nasal Cannula Weight: 244 lb 4.355 oz Body Mass Index (BMI) 37.7 Intake & Output: Intake and Output for Last 24 Hours 07/07/22 07/08/22 07/09/22 23:59 23:59 22:59 Intake Total 2500 / 2500 760 / 760 1200 / 1200 Balance 2500 / 2500 760 / 760 1200 / 1200 Lab / Micro Data Result Diagrams: 07/09/22 07:30 07/09/22 07:30 Labs: Laboratory Results - last 24 hr 07/08/22 16:40: POC Glucose 134 H 07/08/22 21:24: POC Glucose 250 H 07/09/22 06:28: POC Glucose 114 H 07/09/22 07:30: WBC 9.7, RBC 4.57, Hgb 13.7, Hct 42.2, MCV 92.3, MCH 30.0, MCHC 32.5, RDW Std Deviation 47.4 H, RDW Coeff of Santhosh 13.8, Plt Count 278, MPV 9.4, Immature Gran % (Auto) 0.700, Neut % (Auto) 68.0, Lymph % (Auto) 23.9, [place] % (Auto) 7.1, Eos % (Auto) 0.1, Baso % (Auto) 0.2, Absolute Neuts (auto) 6.6, Absolute Lymphs (auto) 2.31, Nucleated RBC % 0 07/09/22 07:30: Sodium 138, Potassium 4.0, Chloride 102, Carbon Dioxide 29.0, Anion Gap 7, BUN 21 H, Creatinine 0.69, Estim Creat Clear Calc 98.40, Est GFR (MDRD) Af Amer 116, Est GFR (MDRD) Non-Af 96, BUN/Creatinine Ratio 30.5 H, Glucose 90, Calcium 8.8 07/09/22 11:40: POC Glucose 154 H Micro: Microbiology 07/06/22 13:57 Mucosa - Nasopharyngeal Respiratory Panel (PCR) - Final Rhinovirus 07/06/22 13:35 Nasal Secretion SARS-CoV-2 & FLU Antigen (Rapid) - Final Physical Exam Const alert, oriented x3 and no apparent distress HEENT head/scalp atraumatic, moist oral mucous membranes and oropharynx normal Eyes PERRL, EOMs intact bilaterally and conjunctivae normal Resp Resp Narrative: diminished breath sounds bibasally, bilateral rhonchi and wheezing in all lung prakash. NO crackles. On 5L of oxygen by nasal canula Cardio regular rate, regular rhythm, S1 normal heart sound, S2 normal heart sound and no murmurs GI normal to inspection, nondistended, normoactive bowel sounds, soft to palpation, non-tender and non-distended Extremity normal to inspection, full ROM and no clubbing, cyanosis or edema Neuro oriented x3, CN's II-XII intact bilaterally, moves all extremities and no focal motor deficits Sensorium / Orientation: awake and alert Motor Exam: strength 5/5 throughout Psych affect normal Assessment & Plan Assessment/Plan (1) Asthma exacerbation: (2) Hypoxia: PLAN: Plan #HYpoxia in setting of chronic respiratory failure due to acute asthma exacerbation * Patient still wheezing and coughing. * on 4 L of oxygen. Usually wears 2 to 3 L of oxygen at home. * On IV Solu-Medrol. Breathing treatments bronchodilators. * This has been exacerbated by acute rhinovirus infection. Titrate oxygen to maintain saturation above 90%. * Pulmonology consulted * #Acute rhinovirus infection: On breathing treatments of bronchodilators. Supportive care. 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 History of DVT and PE: On Coumadin. INR is therapeutic. #Obesity: BMI is 37.7.?Diet and exercise weight loss advised. GERD: On PPI #Hypertension: On lisinopril DVT prophylaxis; on coumadin. INR is therapeutic Charges/Coding Visit Charges Inpatient E&M: 05799 Subs Hosp L2
[2022-07-09 15:08] LABS: International Normalized Ratio 2.9; Prothrombin Time (Protime)PT. 30.2 SECONDS (11.7-14.9)
[2022-07-09 17:35] LABS: Bedside Glucose 231 mg/dL (74-106)
[2022-07-09] MEDS: Nortriptyline 25 MG Capsule PO (21:22)
[2022-07-09 21:50] LABS: Bedside Glucose 223 mg/dL (74-106)
[2022-07-10] VITALS (17 sets, daily range): BP systolic 134–155; BP diastolic 78–96; PULSE 67–106; RESP 12–24; TEMP 36.4–36.9; O2SAT 93–98
[2022-07-10] MEDS: MELATONIN 3 MG TABLET PO ×2 (00:21→21:45)
[2022-07-10] MEDS: guaiFENesin 10 ML UDC (200MG/10ML) 20 ML PO ×2 (00:21→21:45)
[2022-07-10 06:34] LABS: Absolute Lymphocyte Count 2.11 X10^3/uL (0.83-4.51); Absolute Neutrophil Count 6.5 X10^3/uL (2.0-7.7); Basophil# 0.03 X10^3/uL; Basophil% 0.3 % (0-1); Hematocrit 40.8 % (37-47); Lymphocyte # 2.11 X10^3/ul (0.83-4.51); Lymphocyte % 22.3 % (19-41); Mean Corp Hgb Conc 31.9 g/dL (32-36); Mean Corpuscular Hgb 29.5 pg (27.0-32.0); Mean Corpuscular Volume 92.7 fL (81-99); Mean Platelet Vol. 9.3 fl (6.2-12.0); Monocyte# 0.73 X10^3/uL; Monocyte% 7.7 % (0-10); NRBC Flagged by Analyzer 0 % (0-5); Neutrophil # 6.47 X10^3/uL (2.7-7.7); Neutrophil % 68.4 % (47-70); Platelet Count 236 K/mm3 (150-450); RBC Distribution Width CV 13.6 % (11.6-14.6); RBC Distribution Width SD 46.8 fl (35.1-43.9); White Blood Count 9.5 K/mm3 (4.4-11.0)
[2022-07-10] MEDS: Levothyroxine 100 MCG Tablet 200 MCG PO (06:44)
[2022-07-10] MEDS: 0.9% Saline Lock 10 ML Syringe IV ×2 (06:44→14:08)
[2022-07-10] MEDS: Baclofen 10 MG Tablet PO ×3 (06:44→21:46)
[2022-07-10 06:59] LABS: Anion Gap 5 (5-15); BUN 22 mg/dL (7-18); BUN/Creat Ratio 33.6 RATIO (10-20); Calcium,Total 8.6 mg/dL (8.5-10.1); Chloride 103 mmol/L (98-107); Creatinine, Serum 0.65 mg/dL (0.55-1.02); EST Glomerular Filtration Rate 102 mL/min (>60); Est Glom Filt Rate - Afr Amer 123 mL/min (>60); Estimated Creatinine Clearance 104.45 ml/min; Glucose 79 mg/dL (74-106); Potassium 4.7 mmol/L (3.5-5.1); Sodium Level 139 mmol/L (136-145)
[2022-07-10 07:10] LABS: Bedside Glucose 77 mg/dL (74-106)
[2022-07-10] MEDS: Ipratropium/Albuterol Sulfate 3 ML AMPUL.NEB INHALATION ×4 (07:23→19:54)
[2022-07-10] MEDS: Loratadine 10 MG Tablet PO (09:17)
[2022-07-10] MEDS: Fluticasone 0.05% 1 SPRAY NASAL.SRY 2 SPRAY NASAL (09:17)
[2022-07-10] MEDS: busPIRone 5 MG Tablet 10 MG PO ×2 (09:17→21:46)
[2022-07-10] MEDS: Potassium Chloride Oral Tablet 10 MEQ PO (09:17)
[2022-07-10] MEDS: hydrOXYzine 10 MG Tablet PO ×2 (09:18→21:45)
[2022-07-10] MEDS: Famotidine 20 MG Tablet PO (09:18)
[2022-07-10] MEDS: Lisinopril 10 MG Tablet PO (09:18)
[2022-07-10] MEDS: Pantoprazole Sodium 40 MG Tablet PO ×2 (09:18→21:46)
--- NOTE | 2022-07-10 11:11 | PCM.PN.INT ---
Assessment & Plan Assessment/Plan (1) Asthma exacerbation: PLAN: Plan RECOMMENDATIONS: 1. Wean supplemental oxygen to maintain saturations at or above 90%. 2. Continue scheduled bronchodilators and IV steroids at current dosing. 3. Encourage incentive spirometer use and mobilize patient as tolerated. 4. Perform walking oximetry study prior to consideration for discharge home. 5. Outpatient pulmonary follow-up in 2 weeks. IMPRESSIONS: 1. Acute asthma exacerbation secondary to rhinovirus URI The patient appears to be slowly improving clinically. Recommend weaning supplemental oxygen to maintain saturations at or above 90%. Continue scheduled bronchodilators and IV steroids at current doses until off of oxygen. I do anticipate a prolonged steroid taper at discharge. The patient should have a walking oximetry study prior to discharge home. Ideally, she should follow-up in the pulmonary medicine clinic within 2 weeks of discharge. The patient should resume her baseline inhaler regimen including Dulera, low-dose Spiriva and as needed albuterol at the time of her discharge from the hospital. Given viral etiology, recovery may be slow. 2. History of recurrent VTE Plan to continue systemic anticoagulation with Coumadin lifelong. 3. Obesity/history of thyroid cancer/history of pulmonary nodules/GERD Complicates care, management, recovery and prognosis. Continue home medications as indicated. This note was generated with [employer] dictation software. It may contain incorrect words, spelling, and punctuation that were not noted in checking the note before signing. Subjective Subjective Patient did okay overnight. Patient has had improvement in FiO2 requirements. Patient has reported the development of a productive cough. Patient states her cough tends to be paroxysmal in nature and is finally bringing up stuff. Patient does report pressure thoughts but states this is typical on steroid therapy. Objective Data Objective Data Vital Signs: Vital Signs Temp Pulse Resp BP Pulse Ox O2 Del Method O2 Flow Rate 36.9 C 92 18 134/78 H 95 Nasal Cannula 3 07/10/22 08:56 07/10/22 08:56 07/10/22 08:56 07/10/22 08:56 07/10/22 08:56 07/10/22 09:02 07/10/22 09:02 FiO2 30 07/10/22 04:10 Oxygen Flow Rate (L/min) 3 Oxygen Delivery Method Nasal Cannula Weight: 117.4 kg Body Mass Index (BMI) 37.7 Intake & Output: Intake and Output for Last 24 Hours 07/09/22 07/09/22 07/10/22 00:59 23:59 23:59 Intake Total 1300 / 1300 Balance 1300 / 1300 Lab / Micro Data Attestation: I reviewed the patient's lab results. Result Diagrams: 07/10/22 06:20 07/10/22 06:20 Labs: Laboratory Results - last 24 hr 07/09/22 11:40: POC Glucose 154 H 07/09/22 14:33: PT 30.2 H, INR 2.9 07/09/22 17:11: POC Glucose 231 H 07/09/22 21:21: POC Glucose 223 H 07/10/22 06:20: WBC 9.5, RBC 4.40, Hgb 13.0, Hct 40.8, MCV 92.7, MCH 29.5, MCHC 31.9 L, RDW Std Deviation 46.8 H, RDW Coeff of Santhosh 13.6, Plt Count 236, MPV 9.3, Immature Gran % (Auto) 1.300 H, Neut % (Auto) 68.4, Lymph % (Auto) 22.3, [place] % (Auto) 7.7, Eos % (Auto) 0.0, Baso % (Auto) 0.3, Absolute Neuts (auto) 6.5, Absolute Lymphs (auto) 2.11, Nucleated RBC % 0 07/10/22 06:20: Sodium 139, Potassium 4.7, Chloride 103, Carbon Dioxide 31.0, Anion Gap 5, BUN 22 H, Creatinine 0.65, Estim Creat Clear Calc 104.45, Est GFR (MDRD) Af Amer 123, Est GFR (MDRD) Non-Af 102, BUN/Creatinine Ratio 33.6 H, Glucose 79, Calcium 8.6 07/10/22 06:43: POC Glucose 77 Micro: Microbiology 07/06/22 13:57 Mucosa - Nasopharyngeal Respiratory Panel (PCR) - Final Rhinovirus 07/06/22 13:35 Nasal Secretion SARS-CoV-2 & FLU Antigen (Rapid) - Final Physical Exam Const alert Constitutional Narrative: The patient is quite anxious in appearance and intermittently tremulous. Slight flight of ideas noted. HEENT normocephalic and head/scalp atraumatic Eyes PERRL, EOMs intact bilaterally and conjunctivae normal Neck supple General: trachea midline Chest inspection of chest normal Resp Resp Narrative: Multiple episodes of paroxysmal coughing with production noted. Effort and Inspection: tachypneic Auscultation: wheezes and diminished lung sounds; Negative for rales or rhonchi Cardio regular rate, S1 normal heart sound, S2 normal heart sound, no murmurs, no rub and no gallops Rate: tachycardic GI normal to inspection, nondistended, normoactive bowel sounds Extremity no clubbing, cyanosis or edema Skin no rashes or lesions noted Neuro oriented x3, CN's II-XII intact bilaterally, moves all extremities and no focal motor deficits Psych Activity / Motor Behavior: restless Mood & Affect: anxious Charges/Coding Visit Charges Inpatient E&M: 17302 Subs Hosp L2
[2022-07-10 11:40] LABS: Bedside Glucose 114 mg/dL (74-106)
--- NOTE | 2022-07-10 11:56 | PN.HOSP_ITS ---
Subjective Subjective Patient seen and examined. She says she feels much better. She is still coughing but says her breathing has improved. She remains on oxygen. Review of symptoms otherwise negative. Objective Data Objective Data Vital Signs: Vital Signs Temp Pulse Resp BP Pulse Ox O2 Del Method O2 Flow Rate 98.4 F 81 19 H 134/78 H 95 Nasal Cannula 3 07/10/22 08:56 07/10/22 11:46 07/10/22 11:46 07/10/22 08:56 07/10/22 08:56 07/10/22 09:02 07/10/22 09:02 FiO2 30 07/10/22 04:10 Oxygen Flow Rate (L/min) 3 Oxygen Delivery Method Nasal Cannula Weight: 258 lb 13.163 oz Body Mass Index (BMI) 37.7 Intake & Output: Intake and Output for Last 24 Hours 07/09/22 07/09/22 07/10/22 00:59 23:59 23:59 Intake Total 1300 / 1300 Balance 1300 / 1300 Lab / Micro Data Result Diagrams: 07/10/22 06:20 07/10/22 06:20 Labs: Laboratory Results - last 24 hr 07/09/22 11:40: POC Glucose 154 H 07/09/22 14:33: PT 30.2 H, INR 2.9 07/09/22 17:11: POC Glucose 231 H 07/09/22 21:21: POC Glucose 223 H 07/10/22 06:20: WBC 9.5, RBC 4.40, Hgb 13.0, Hct 40.8, MCV 92.7, MCH 29.5, MCHC 31.9 L, RDW Std Deviation 46.8 H, RDW Coeff of Santhosh 13.6, Plt Count 236, MPV 9.3, Immature Gran % (Auto) 1.300 H, Neut % (Auto) 68.4, Lymph % (Auto) 22.3, [place] % (Auto) 7.7, Eos % (Auto) 0.0, Baso % (Auto) 0.3, Absolute Neuts (auto) 6.5, Absolute Lymphs (auto) 2.11, Nucleated RBC % 0 07/10/22 06:20: Sodium 139, Potassium 4.7, Chloride 103, Carbon Dioxide 31.0, Anion Gap 5, BUN 22 H, Creatinine 0.65, Estim Creat Clear Calc 104.45, Est GFR (MDRD) Af Amer 123, Est GFR (MDRD) Non-Af 102, BUN/Creatinine Ratio 33.6 H, Glucose 79, Calcium 8.6 07/10/22 06:43: POC Glucose 77 07/10/22 11:13: POC Glucose 114 H Micro: Microbiology 07/06/22 13:57 Mucosa - Nasopharyngeal Respiratory Panel (PCR) - Final Rhinovirus 07/06/22 13:35 Nasal Secretion SARS-CoV-2 & FLU Antigen (Rapid) - Final Physical Exam Const alert, oriented x3 and no apparent distress HEENT head/scalp atraumatic, moist oral mucous membranes and oropharynx normal Head and Scalp: normocephalic Mouth: oral and palatal mucosa normal Eyes PERRL, EOMs intact bilaterally and conjunctivae normal Neck no lymphadenopathy and supple Resp Resp Narrative: diminished breath sounds bibasally, bilateral rhonchi and wheezing in all lung prakash. NO crackles. On 3L of oxygen by nasal canula Cardio regular rate, regular rhythm, S1 normal heart sound, S2 normal heart sound and no murmurs GI normal to inspection, nondistended, normoactive bowel sounds, soft to palpation, non-tender and non-distended Extremity normal to inspection, full ROM and no clubbing, cyanosis or edema Neuro oriented x3, CN's II-XII intact bilaterally, moves all extremities and no focal motor deficits Sensorium / Orientation: awake and alert Motor Exam: strength 5/5 throughout Psych affect normal Assessment & Plan Assessment/Plan (1) Asthma exacerbation: (2) Hypoxia: PLAN: Plan #HYpoxia in setting of chronic respiratory failure due to acute asthma exacerbation * Patient still wheezing and coughing but feeling much better. * on 3 L of oxygen. Usually wears 2 to 3 L of oxygen at home. * On IV Solu-Medrol. Breathing treatments bronchodilators. * This has been exacerbated by acute rhinovirus infection. Titrate oxygen to maintain saturation above 90%. * Pulmonology on board. * #Acute rhinovirus infection: On breathing treatments of bronchodilators. Supportive care. 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 History of DVT and PE: On Coumadin. INR is therapeutic. #Obesity: BMI is 37.7.?Diet and exercise weight loss advised. GERD: On PPI #Hypertension: On lisinopril DVT prophylaxis; on coumadin. INR pending today Charges/Coding Visit Charges Inpatient E&M: 09852 Subs Hosp L2
[2022-07-10 12:44] LABS: International Normalized Ratio 3.3; Prothrombin Time (Protime)PT. 32.9 SECONDS (11.7-14.9)
[2022-07-10 17:05] LABS: Bedside Glucose 103 mg/dL (74-106)
[2022-07-10] MEDS: Acetaminophen 325 MG Tablet 650 MG PO (21:45)
[2022-07-10] MEDS: Nortriptyline 25 MG Capsule PO (21:46)
[2022-07-10] MEDS: Insulin Lispro 100 UNIT/ML INSULN.PEN SC (21:49)
[2022-07-10 22:21] LABS: Bedside Glucose 225 mg/dL (74-106)
[2022-07-11] VITALS (11 sets, daily range): BP systolic 115–170; BP diastolic 83–100; PULSE 65–97; RESP 12–20; TEMP 36.6–36.9; O2SAT 86–99
[2022-07-11] MEDS: 0.9% Saline Lock 10 ML Syringe IV (06:02)
[2022-07-11] MEDS: Baclofen 10 MG Tablet PO ×2 (06:02→15:43)
[2022-07-11] MEDS: Levothyroxine 100 MCG Tablet 200 MCG PO (06:02)
[2022-07-11 06:10] LABS: Absolute Lymphocyte Count 2.25 X10^3/uL (0.83-4.51); Absolute Neutrophil Count 6.3 X10^3/uL (2.0-7.7); Basophil# 0.05 X10^3/uL; Basophil% 0.5 % (0-1); Eosinophil# 0.03 X10^3/uL; Eosinophils% 0.3 % (0-5); Hematocrit 41.1 % (37-47); Hemoglobin 13.4 g/dL (12.0-15.0); Lymphocyte # 2.25 X10^3/ul (0.83-4.51); Lymphocyte % 23.3 % (19-41); Mean Corp Hgb Conc 32.6 g/dL (32-36); Mean Corpuscular Hgb 29.7 pg (27.0-32.0); Mean Corpuscular Volume 91.1 fL (81-99); Monocyte# 0.71 X10^3/uL; Monocyte% 7.3 % (0-10); NRBC Flagged by Analyzer 0 % (0-5); Neutrophil # 6.34 X10^3/uL (2.7-7.7); Neutrophil % 65.7 % (47-70); Platelet Count 262 K/mm3 (150-450); RBC Distribution Width CV 13.2 % (11.6-14.6); RBC Distribution Width SD 44.7 fl (35.1-43.9); Red Blood Count 4.51 M/mm3 (4.2-5.4); White Blood Count 9.7 K/mm3 (4.4-11.0)
[2022-07-11 06:30] LABS: Bedside Glucose 102 mg/dL (74-106)
[2022-07-11] MEDS: Ipratropium/Albuterol Sulfate 3 ML AMPUL.NEB INHALATION ×3 (07:05→15:16)
[2022-07-11 07:09] LABS: Anion Gap 7 (5-15); BUN 19 mg/dL (7-18); BUN/Creat Ratio 27.9 RATIO (10-20); Calcium,Total 9.2 mg/dL (8.5-10.1); Chloride 101 mmol/L (98-107); Creatinine, Serum 0.68 mg/dL (0.55-1.02); EST Glomerular Filtration Rate 97 mL/min (>60); Est Glom Filt Rate - Afr Amer 118 mL/min (>60); Estimated Creatinine Clearance 99.84 ml/min; Glucose 96 mg/dL (74-106); Potassium 4.3 mmol/L (3.5-5.1); Sodium Level 139 mmol/L (136-145)
[2022-07-11] MEDS: Potassium Chloride Oral Tablet 10 MEQ PO (08:32)
[2022-07-11] MEDS: Pantoprazole Sodium 40 MG Tablet PO (08:33)
[2022-07-11] MEDS: busPIRone 5 MG Tablet 10 MG PO (08:33)
[2022-07-11] MEDS: hydrOXYzine 10 MG Tablet PO (08:34)
[2022-07-11] MEDS: Loratadine 10 MG Tablet PO (08:34)
[2022-07-11] MEDS: Famotidine 20 MG Tablet PO (08:35)
[2022-07-11] MEDS: Lisinopril 10 MG Tablet PO (08:35)
--- NOTE | 2022-07-11 10:02 | PCM.PN.INT ---
Assessment & Plan Assessment/Plan (1) Asthma exacerbation: PLAN: Plan RECOMMENDATIONS: 1. Wean supplemental oxygen to maintain saturations at or above 90%. 2. Continue scheduled bronchodilators. Okay to transition to 40 mg of prednisone daily and wean over 12 to 14 days. 3. Encourage incentive spirometer use and mobilize patient as tolerated. 4. Perform walking oximetry study prior to consideration for discharge home. 5. Outpatient pulmonary follow-up in 2 weeks with Padmini/Dr. Castillo. IMPRESSIONS: 1. Acute asthma exacerbation secondary to rhinovirus URI The patient appears to be slowly improving clinically. Recommend weaning supplemental oxygen to maintain saturations at or above 90%. Continue scheduled bronchodilators and IV steroids at current doses until off of oxygen. I do anticipate a prolonged steroid taper at discharge. The patient should have a walking oximetry study prior to discharge home. Ideally, she should follow-up in the pulmonary medicine clinic within 2 weeks of discharge. The patient should resume her baseline inhaler regimen including Dulera, low-dose Spiriva and as needed albuterol at the time of her discharge from the hospital. Given viral etiology, recovery may be slow. Patient should follow-up with Padmini Salinas/Dr. Castillo as an outpatient. Okay to discharge on supplemental oxygen 2. History of recurrent VTE Plan to continue systemic anticoagulation with Coumadin lifelong. 3. Obesity/history of thyroid cancer/history of pulmonary nodules/GERD Complicates care, management, recovery and prognosis. Continue home medications as indicated. This note was generated with [employer] dictation software. It may contain incorrect words, spelling, and punctuation that were not noted in checking the note before signing. Subjective Subjective Patient did okay overnight. Patient subjectively feels improved. Patient still with paroxysmal type coughing and production. Patient states that she feels well enough that she could go home with oxygen. Patient states she has required oxygen previously. Objective Data Objective Data Vital Signs: Vital Signs Temp Pulse Resp BP Pulse Ox O2 Del Method O2 Flow Rate 36.9 C 90 20 H 146/83 H 97 Nasal Cannula 2 07/11/22 08:12 07/11/22 08:12 07/11/22 08:12 07/11/22 08:12 07/11/22 08:12 07/11/22 08:20 07/11/22 08:20 FiO2 30 07/11/22 05:20 Oxygen Flow Rate (L/min) 2 Oxygen Delivery Method Nasal Cannula Weight: 115.6 kg Body Mass Index (BMI) 37.7 Intake & Output: Intake and Output for Last 24 Hours 07/09/22 07/10/22 07/11/22 23:59 23:59 23:59 Intake Total 1300 / 1300 900 / 900 Balance 1300 / 1300 900 / 900 Lab / Micro Data Result Diagrams: 07/11/22 05:56 07/11/22 05:56 Labs: Laboratory Results - last 24 hr 07/10/22 11:13: POC Glucose 114 H 07/10/22 12:21: PT 32.9 H, INR 3.3 07/10/22 16:41: POC Glucose 103 07/10/22 21:48: POC Glucose 225 H 07/11/22 05:56: WBC 9.7, RBC 4.51, Hgb 13.4, Hct 41.1, MCV 91.1, MCH 29.7, MCHC 32.6, RDW Std Deviation 44.7 H, RDW Coeff of Santhosh 13.2, Plt Count 262, MPV 9.0, Immature Gran % (Auto) 2.900 H, Neut % (Auto) 65.7, Lymph % (Auto) 23.3, [place] % (Auto) 7.3, Eos % (Auto) 0.3, Baso % (Auto) 0.5, Absolute Neuts (auto) 6.3, Absolute Lymphs (auto) 2.25, Nucleated RBC % 0 07/11/22 05:56: Sodium 139, Potassium 4.3, Chloride 101, Carbon Dioxide 31.0, Anion Gap 7, BUN 19 H, Creatinine 0.68, Estim Creat Clear Calc 99.84, Est GFR (MDRD) Af Amer 118, Est GFR (MDRD) Non-Af 97, BUN/Creatinine Ratio 27.9 H, Glucose 96, Calcium 9.2 07/11/22 06:01: POC Glucose 102 Micro: Microbiology 07/06/22 13:57 Mucosa - Nasopharyngeal Respiratory Panel (PCR) - Final Rhinovirus 07/06/22 13:35 Nasal Secretion SARS-CoV-2 & FLU Antigen (Rapid) - Final Physical Exam Const alert Constitutional Narrative: The patient is quite anxious in appearance and intermittently tremulous. Slight flight of ideas noted. HEENT normocephalic and head/scalp atraumatic Eyes PERRL, EOMs intact bilaterally and conjunctivae normal Neck supple General: trachea midline Chest inspection of chest normal Resp Resp Narrative: Multiple episodes of paroxysmal coughing with production noted. Effort and Inspection: tachypneic Auscultation: wheezes and diminished lung sounds; Negative for rales or rhonchi Cardio regular rate, S1 normal heart sound, S2 normal heart sound, no murmurs, no rub and no gallops Rate: tachycardic GI normal to inspection, nondistended, normoactive bowel sounds Extremity no clubbing, cyanosis or edema Skin no rashes or lesions noted Neuro oriented x3, CN's II-XII intact bilaterally, moves all extremities and no focal motor deficits Psych Activity / Motor Behavior: restless Mood & Affect: anxious Charges/Coding Visit Charges Inpatient E&M: 08638 Subs Hosp L2
[2022-07-11 12:26] LABS: Bedside Glucose 96 mg/dL (74-106)
--- NOTE | 2022-07-11 13:17 | CASEMGMT ---
Addendum entered by Erika Chacon 07/11/22 13:59: [employer] rep delivered portable oxygen and states pt is in need of nebulizer. Updated hospitalist and order received. Updated careport referral and emailed hospital liaison. Addendum entered by Erika Chacon 07/11/22 13:34: DIONNE MARQUES into pt room, reviewed oxygen process with pt. She denies questions. Provided pt with a local healthcare directory list as pt wants to change providers. Pt states her insurance will provide meals if called. Will attempt to set this up. Pt denies further needs. Original Note: Pt qualifies for 3L oxygen with exertion. Referral sent to [employer] via careport and email sent to liaison. Updated hospitalist, pt to dc today. Referral to patient link made. Pox given to nurse for pt.
--- NOTE | 2022-07-11 13:27 | PCM.DC.SUM ---
Providers Date of Admission: 07/06/22 Date of Discharge: 07/11/22 Primary Care Physician: RIRI Fitch Consultations 07/09/22 07:38 Consult: Watch Commander / Pulmonary Medicine Routine Consulting Provider: Pulmonary Medicine yaneth Torre Reason for Consult: acute asthma exacerbation EMERGENT Consult: No MD Notified: Yes Date Notified: 07/09/22 Time Notified: 07:38 Method of Notification: Text Reason For Visit: ACUTE ASTHMA/COPD EXACERBATION Diagnosis Discharge Diagnosis (1) Asthma exacerbation: Status: Acute Code(s): J45.901 - Unspecified asthma with (acute) exacerbation Plan #HYpoxia in setting of chronic respiratory failure due to acute asthma exacerbation Patient still wheezing and coughing but feeling much better. on 3 L of oxygen. Usually wears 2 to 3 L of oxygen at home. On IV Solu-Medrol. Breathing treatments bronchodilators. This has been exacerbated by acute rhinovirus infection. Titrate oxygen to maintain saturation above 90%. Pulmonology on board. #Acute rhinovirus infection: On breathing treatments of bronchodilators. Supportive care. 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 History of DVT and PE: On Coumadin. INR is therapeutic. #Obesity: BMI is 37.7.?Diet and exercise weight loss advised. GERD: On PPI #Hypertension: On lisinopril DVT prophylaxis; on coumadin. INR pending today Medications at Discharge Home Medications albuterol sulfate 90 mcg/actuation aerosol inhaler 1 puff inhalation Q4H PRN PRN Sob &/Or Wheezing 01/15/14 cholecalciferol (vitamin D3) 250 mcg (10,000 unit) capsule 3,000 unit PO DAILY supplement 01/15/14 levothyroxine 175 mcg tablet 200 mcg PO DAILY thyroid 01/15/14 mometasone-formoterol HFA 200 mcg-5 mcg/actuation aerosol inhaler 2 inhaler inhalation BID SOB 01/15/14 pantoprazole 20 mg tablet,delayed release 40 mg PO BID gerd 01/15/14 potassium chloride 20 mEq tablet,extended release(part/cryst) 10 meq PO DAILY supplement 01/15/14 cyanocobalamin (vitamin B-12) 1,000 mcg/mL oral drops 1,000 mcg PO QODAY supplement 05/01/15 tiotropium bromide 18 mcg capsule with inhalation device 1 puff inhalation DAILY SOB 05/01/15 warfarin 5 mg tablet 10 mg PO DAILY blood clots 05/01/15 calcium carbonate 600 mg calcium (1,500 mg) tablet 600 mg PO PRN PRN Gastric Reflux 08/27/15 enoxaparin 80 mg/0.8 mL subcutaneous syringe 70 mg subcut Q12@0600,1800 PRN blood clot 03/31/16 baclofen 10 mg tablet 10 mg PO TID PRN Back Pain 11/22/18 buspirone 10 mg tablet 10 mg PO TID neuropathy 11/22/18 cetirizine 10 mg tablet (All Day Allergy (cetirizine)) 10 mg PO DAILY allergies 11/22/18 albuterol sulfate 90 mcg/actuation aerosol inhaler (Ventolin HFA) 2 puff inhalation PRN PRN Shortness Of Breath 07/06/22 famotidine 20 mg tablet 20 mg PO DAILY gerd 07/06/22 fluticasone propionate 50 mcg/actuation nasal spray,suspension 2 spray intranasal DAILY allergies 07/06/22 hydroxyzine HCl 10 mg tablet 10 mg PO BID mood 07/06/22 lisinopril 10 mg tablet 10 mg PO DAILY bp 07/06/22 mometasone-formoterol HFA 200 mcg-5 mcg/actuation aerosol inhaler (Dulera) 2 puff inhalation BID sob 07/06/22 nortriptyline 25 mg capsule 50 mg PO DAILY neuropathy 07/06/22 prednisone 10 mg tablet 10 mg PO DAILY PRN SOB 07/06/22 sumatriptan succinate 50 mg tablet 50 mg PO PRN PRN Migraine Headache 07/06/22 warfarin 7.5 mg tablet 7.5 mg PO DAILY blood clots 07/06/22 hydroxyzine HCl 10 mg tablet 10 mg PO BID PRN Anxiety 07/07/22 methylprednisolone 4 mg tablets in a dose pack (Medrol (Galindo)) 4 mg PO DAILY #21 tabs 07/11/22 Hospital Course Operations None Summary of Care Provided Minutes Spent on Discharge: 45 Hospital Course: Patient is a 52 y/o with a PMH as outlined was admitted via the ED on 07/06/2022 with a complaint of shortness of breath, cough and sore throat. She also had associated wheezing. She was noted to be saturating at 83% on room air when she went to an urgent care for evaluation. She was sent to the ED where she was saturating at 99% on 15 L of oxygen. COVID and influenza screen was negative. Respiratory panel was positive for rhinovirus. She was admitted and managed for acute asthma exacerbation due to rhinovirus infection. She was hydrated with fluids and started on IV Solu-Medrol and breathing treatments bronchodilators. Shortness of breath gradually improved. Pulmonology was also consulted. She gradually felt better and oxygen was weaned down to 2 L. She remained stable and was discharged home on 07/11/2022. She is to follow-up with her primary care doctor and follow-up with pulmonology within 1 to 2 weeks. She was discharged on a Medrol Dosepak. Patient seen and examined prior to discharge. She had no active complaints and had an uneventful night. Review of systems otherwise negative. Labs and vitals reviewed. Home medication reviewed and reconciled. Physical Exam Const alert, oriented x3 and no apparent distress General Appearance: cooperative, comfortable and well kempt Orientation / Consciousness: awake Exam Limitations: no limitations HEENT normocephalic, head/scalp atraumatic, hearing grossly normal bilaterally, moist oral mucous membranes and oropharynx normal Mouth: oral and palatal mucosa normal Eyes PERRL, EOMs intact bilaterally and conjunctivae normal Neck no lymphadenopathy and supple Resp Resp Narrative: diminished breath sounds bibasally, bilateral rhonchi and wheezing in all lung prakash. NO crackles. On 2L of oxygen by nasal canula Cardio regular rate, regular rhythm, S1 normal heart sound, S2 normal heart sound and no murmurs GI normal to inspection, nondistended, normoactive bowel sounds, soft to palpation, non-tender and non-distended Extremity normal to inspection, full ROM and no clubbing, cyanosis or edema Skin no rashes or lesions noted Neuro oriented x3, CN's II-XII intact bilaterally, moves all extremities and no focal motor deficits Sensorium / Orientation: awake and alert Motor Exam: strength 5/5 throughout Psych affect normal Weight / BMI Weight Weight: 254 lb 13.67 oz Body Mass Index (BMI) 37.7 ABG / Lab / Microbiology Data Result Diagrams: 07/11/22 05:56 07/11/22 05:56 Laboratory: Laboratory Results - last 24 hr 07/10/22 16:41: POC Glucose 103 07/10/22 21:48: POC Glucose 225 H 07/11/22 05:56: WBC 9.7, RBC 4.51, Hgb 13.4, Hct 41.1, MCV 91.1, MCH 29.7, MCHC 32.6, RDW Std Deviation 44.7 H, RDW Coeff of Santhosh 13.2, Plt Count 262, MPV 9.0, Immature Gran % (Auto) 2.900 H, Neut % (Auto) 65.7, Lymph % (Auto) 23.3, [place] % (Auto) 7.3, Eos % (Auto) 0.3, Baso % (Auto) 0.5, Absolute Neuts (auto) 6.3, Absolute Lymphs (auto) 2.25, Nucleated RBC % 0 07/11/22 05:56: Sodium 139, Potassium 4.3, Chloride 101, Carbon Dioxide 31.0, Anion Gap 7, BUN 19 H, Creatinine 0.68, Estim Creat Clear Calc 99.84, Est GFR (MDRD) Af Amer 118, Est GFR (MDRD) Non-Af 97, BUN/Creatinine Ratio 27.9 H, Glucose 96, Calcium 9.2 07/11/22 06:01: POC Glucose 102 07/11/22 11:44: POC Glucose 96 Microbiology: Microbiology 07/06/22 13:57 Mucosa - Nasopharyngeal Respiratory Panel (PCR) - Final Rhinovirus 07/06/22 13:35 Nasal Secretion SARS-CoV-2 & FLU Antigen (Rapid) - Final D/C Instructions Discharge Diet: Low fat / Low cholesterol Discharge Activity: Return to Normal Activity Weight Bearing Status: Weight bearing as tolerated Call your doctor if you observe: Fever of 101 or Higher, Shortness of breath, Dizziness, Swelling in the ankles, Chest pain and Increased palpitations (irregular heartbeat) Meaningful Use Info Meaningful Use Diagnoses (Choose all that apply): None applicable Discharge Plan Admission Admit Date/Time: 07/06/22 15:58 Primary Reason for Your Visit: acute asthma exacerbation Attending Provider: Wanda Woodward Primary Care Provider: Roseanna Jean NP Consulting Providers: Soha Herrmann ; Rainer Griffin ; Concetta Zarate ; Wilson Meneses ; Lake Castillo ; Gil Díaz ; Sylvain Pandey ; Padmini Salinas COMMERCIAL MARKETING SPECIALIST Instructions Patient Instructions: Acute Severe Asthma, Asthma Discharge Orders/Prescriptions Prescriptions: New methylprednisolone [Medrol (Galindo)] 4 mg tablets,dose pack 4 mg PO DAILY Qty: 21 0RF Continued baclofen 10 mg tablet 10 mg PO TID PRN (Reason: Back Pain) buspirone 10 mg tablet 10 mg PO TID cetirizine [All Day Allergy (cetirizine)] 10 mg tablet 10 mg PO DAILY levothyroxine 175 MCG tablet 200 mcg PO DAILY Label Comments: thyroid pantoprazole 20 MG tablet 40 mg PO BID Label Comments: acid reflux potassium chloride 20 MEQ tablet 10 meq PO DAILY Label Comments: supplement mometasone-formoterol 13 GM HFA aerosol inhaler 2 inhaler Inhalation BID Label Comments: breathing albuterol sulfate 1 PUFF inhaler 1 puff Inhalation Q4H PRN PRN (Reason: Sob &/Or Wheezing) Label Comments: wheezing, shortness of breath cholecalciferol (vitamin D3) 10,000 UNIT capsule 3,000 unit PO DAILY Label Comments: vitamin supplement warfarin 5 MG tablet 10 mg PO DAILY Rx Instructions: Mon, Sun, Sun tiotropium bromide 1 PUFF inhaler 1 puff Inhalation DAILY cyanocobalamin (vitamin B-12) 1,000 MCG/ML drops 1,000 mcg PO QODAY calcium carbonate 600 MG tablet 600 mg PO PRN PRN (Reason: Gastric Reflux) enoxaparin 80 MG/0.8 ML syringe 70 mg subcut Q12@0600,1800 PRN (Reason: blood clot) Label Comments: started 03/30/16 warfarin 7.5 mg Tablet 7.5 mg PO DAILY Rx Instructions: , , sun, sun famotidine 20 mg tablet 20 mg PO DAILY Label Comments: TAKE ONE TABLET BY MOUTH AT BEDTIME NEEDED lisinopril 10 mg tablet 10 mg PO DAILY Label Comments: TAKE ONE TABLET BY MOUTH ONCE DAILY albuterol sulfate [Ventolin HFA] 90 mcg/actuation HFA aerosol inhaler 2 puff INHALATION PRN PRN (Reason: Shortness Of Breath) Label Comments: INHALE TWO PUFFS DIRECTED EVERY 4 HOURS NEEDED FOR wheezing OR SHORTNESS OF BREATH prednisone 10 mg tablet 10 mg PO DAILY PRN (Reason: SOB) Label Comments: take 6 tabs FOR ONE DAY, THEN 5 tabs FOR ONE DAY, THEN 4 TABS FOR 3 DAYS, THEN 3 TABS FOR 3 DAYS, THEN 2 TABS FOR 3 DAYS, THEN ONE TAB FOR 3 DAYS. THEN STOP AND keep extra. Rx Instructions: 6 pills x1 day, 5 pills x 1 day, 4 pills x3 days , 3 pills x 3 days, 2 pills x 3 days, 1 pill x days 3 days then stop sumatriptan succinate 50 mg tablet 50 mg PO PRN PRN (Reason: Migraine Headache) Label Comments: TAKE ONE TABLET BY MOUTH AT ONSET of migraine HEADACHE. MAY REPEAT DOSE if no RELIEF in two hours. nortriptyline 25 mg capsule 50 mg PO DAILY Label Comments: TAKE ONE CAPSULE BY MOUTH AT BEDTIME hydroxyzine HCl 10 mg tablet 10 mg PO BID Label Comments: TAKE ONE TABLET BY MOUTH TWICE DAILY NEEDED fluticasone propionate 50 mcg/actuation spray,suspension 2 spray intranasal DAILY Label Comments: USE TWO SPRAYS IN EACH NOSTRIL ONCE DAILY Dulera 200-5 mcg/actuation HFA aerosol inhaler 2 puff INHALATION BID Label Comments: INHALE 2 PUFFS DIRECTED TWICE DAILY hydroxyzine HCl 10 mg tablet 10 mg PO BID PRN (Reason: Anxiety) Label Comments: TAKE ONE TABLET BY MOUTH TWICE DAILY NEEDED Referrals / Follow Up: Lake Castillo DO [Med Staff - Active Staff] - Within 2 Weeks Roseanna Jean NP, COMMERCIAL MARKETING SPECIALIST-C [Primary Care Provider] - Within 2 Weeks Disposition Disposition (needs filled in before D/C Order can be placed): Home, Self Care Charges/Coding Visit Charges Inpatient E&M: 44051 Disch Hosp
--- NOTE | 2022-07-11 14:47 | CASEMGMT ---
Addendum entered by Jihan Holley 07/11/22 15:00: SW provided pre-auth number to patient and informed that [facility] [employer] will contact when approval is obtained. Pt voiced understanding. Original Note: Social Work SW reached out to [employer] insurance company following discussion with RN, who stated that pt reported a medicare benefit for post discharge meals. The pt asked for assistance setting this service up. SW on the phone with [employer] for 45 minutes while attempting to find appropriate customer service sales consultant to complete this request. The plan is for post discharge delivered meals through [employer]. A pending auth number (#[id number]) was provided to this SW. The [employer] rep reported once pt is approved [employer] will contact pt to set up delivery times. BRIANA Gutierrez
== END 2022-07-11 16:15 | disposition home or self-care (01) | DRG 202 ==
LOC: ED 16:45 → MS3 16:55
PROVIDERS: Internal Medicine; Admitting Provider Family Medicine; Emergency Provider Emergency Medicine; PCP Registered Nurse; Visit Provider Student in an Organized Health Care Education/Training Program
DX: J45.901 Unspecified asthma with (acute) exacerbation (principal); J96.21 Acute and chronic respiratory failure with hypoxia; J44.1 Chronic obstructive pulmonary disease with (acute) exacerbation; C73 Malignant neoplasm of thyroid gland; E11.40 Type 2 diabetes mellitus with diabetic neuropathy, unspecified; E66.01 Morbid (severe) obesity due to excess calories; F60.4 Histrionic personality disorder; K21.9 Gastro-esophageal reflux disease without esophagitis; I10 Essential (primary) hypertension; E89.0 Postprocedural hypothyroidism; E78.5 Hyperlipidemia, unspecified; G47.33 Obstructive sleep apnea (adult) (pediatric); J06.9 Acute upper respiratory infection, unspecified; F41.9 Anxiety disorder, unspecified; Z68.37 Body mass index [BMI] 37.0-37.9, adult; F32.A Depression, unspecified; B97.89 Other viral agents as the cause of diseases classified elsewhere; Z79.51 Long term (current) use of inhaled steroids; Z20.822 Contact with and (suspected) exposure to COVID-19; Z79.01 Long term (current) use of anticoagulants; Z87.891 Personal history of nicotine dependence; Z86.711 Personal history of pulmonary embolism; R79.1 Abnormal coagulation profile; T45.515A Adverse effect of anticoagulants, initial encounter; Z86.718 Personal history of other venous thrombosis and embolism
CPT/HCPCS: 36415; 71045; 80048; 80053; 82962; 83036; 83605; 84145; 84484; 85025; 85610; 87428; 87633; 87635; 93005; 94002; 94003; 94640; 94667; 94668; 94762; 99251; 99285; J7030; A4216; G0463; U0003; U0005

== ENCOUNTER → 2022-07-28 | Outpatient (CLI) | payer MEDICARE, MEDICAID, SELFPAY ==
--- NOTE | 2022-07-28 14:58 | US_ITS ---
STUDY: THYROID ULTRASOUND REASON FOR EXAM: Female, 52 years old. x -- s/p partial thyroidectomy, thyroid cancer TECHNIQUE: Ultrasound evaluation of the thyroid was performed with real-time and static lenz-scale imaging. COMPARISON: 11/08/2018 FINDINGS: RIGHT LOBE: The right lobe of the thyroid gland measures 3.8 x 2 x 1.6 cm. There is a heterogeneous echotexture with nodularity. There are no demonstrated solid, cystic or complex discrete measurable nodule. Gland appears hypervascular. LEFT LOBE: The left lobe of the thyroid gland is surgically absent. There is demonstrated solid 8.4 x 5.4x 4mm nodule in the thyroid bed. ISTHMUS: The isthmus was not measured. US/Thyroid IMPRESSION: Left thyroidectomy changes. Along the left thyroid bed there is a soft tissue mass measuring 8 x 5 mm. Residual thyroid tissue and/or recurrent mass cannot be excluded. Electronically Signed: Mack Bob MD at 18:01 EST ,
[2022-07-28 15:43] LABS: ALB/GLOB Ratio 0.8 RATIO (0.9-2.4); AST(SGOT) 17 U/L (15-37); Alanine Aminotransfer ALT/SGPT 23 U/L (13-56); Albumin, Serum 3.2 g/dL (3.2-5.0); Alkaline Phosphatase 78 U/L (45-117); Anion Gap 6 (5-15); BUN 17 mg/dL (7-18); BUN/Creat Ratio 22.8 RATIO (10-20); Calcium,Total 8.4 mg/dL (8.5-10.1); Chloride 105 mmol/L (98-107); Creatinine, Serum 0.74 mg/dL (0.55-1.02); EST Glomerular Filtration Rate 88 mL/min (>60); Est Glom Filt Rate - Afr Amer 106 mL/min (>60); Globulin 4.1 g/dL (2.2-4.2); Glucose 107 mg/dL (74-106); Potassium 4.1 mmol/L (3.5-5.1); Protein, Total 7.3 g/dL (6.4-8.2); Sodium Level 140 mmol/L (136-145); T4 Free Direct 1.23 ng/dL (0.76-1.46); Thyroid Stim Hormone (TSH) 0.75 uIU/mL (0.358-3.74)
[2022-08-01 14:55] LABS: Anti-Thyroglobulin AB < 1.0 IU/mL (0.0-0.9)
== END | disposition home or self-care (01) ==
LOC: US 14:32
PROVIDERS: PCP Registered Nurse; Referring Provider Internal Medicine Endocrinology, Diabetes & Metabolism; Visit Provider Internal Medicine Endocrinology, Diabetes & Metabolism
DX: C73 Malignant neoplasm of thyroid gland (principal); E03.9 Hypothyroidism, unspecified
CPT/HCPCS: 36415; 76536; 80053; 84432; 84439; 84443; 86800

== ENCOUNTER → 2022-12-12 | Outpatient (CLI) | payer MEDICARE, MEDICAID, SELFPAY ==
[2022-12-12 11:54] LABS: T4 Free Direct 1.52 ng/dL (0.76-1.46); Thyroid Stim Hormone (TSH) 0.98 uIU/mL (0.358-3.74)
[2022-12-13 18:33] LABS: Anti-Thyroglobulin AB < 1.0 IU/mL (0.0-0.9); Thyroglobulin, Serum Qt. 4.5 ng/mL (1.5-38.5)
== END | disposition home or self-care (01) ==
LOC: LAB 10:59
PROVIDERS: PCP Registered Nurse; Referring Provider Internal Medicine Endocrinology, Diabetes & Metabolism; Visit Provider Internal Medicine Endocrinology, Diabetes & Metabolism
DX: E11.9 Type 2 diabetes mellitus without complications (principal); C73 Malignant neoplasm of thyroid gland; E66.9 Obesity, unspecified; E03.9 Hypothyroidism, unspecified
CPT/HCPCS: 36415; 83036; 84432; 84439; 84443; 86800

== ENCOUNTER → 2022-12-25 | Outpatient (CLI) | payer MEDICARE, MEDICAID, SELFPAY ==
[2022-12-26 17:08] LABS: Anti-Thyroglobulin AB < 1.0 IU/mL (0.0-0.9); Thyroglobulin, Serum Qt. 29.9 ng/mL (1.5-38.5)
== END | disposition home or self-care (01) ==
LOC: LAB 09:13
PROVIDERS: PCP Registered Nurse; Referring Provider Internal Medicine Endocrinology, Diabetes & Metabolism; Visit Provider Internal Medicine Endocrinology, Diabetes & Metabolism
DX: C73 Malignant neoplasm of thyroid gland (principal); E03.9 Hypothyroidism, unspecified
CPT/HCPCS: 36415; 84432; 84443; 86800

== ENCOUNTER → 2023-01-01 | Outpatient (CLI) | payer MEDICARE, MEDICAID, SELFPAY ==
--- NOTE | 2023-01-01 09:12 | NM_ITS ---
INDICATION: Stop T4 today, give once TSH over 30. -- 29.9 mci EXAMINATION: NUCLEAR MEDICINE THYROID THERAPY - NM Radiopharmaceutical Therapy, by oral administration TECHNIQUE: After obtaining informed consent, the patient was orally administered a 31.4 mCi I-131 tablet. COMPARISON: None. NM/Therapy I-131 IMPRESSION: Radioactive iodine therapy. Electronically Signed: Juan Deleon MD at 12:46 EDT ,
== END | disposition home or self-care (01) ==
LOC: NM 09:09
PROVIDERS: PCP Registered Nurse; Referring Provider Internal Medicine Endocrinology, Diabetes & Metabolism; Visit Provider Internal Medicine Endocrinology, Diabetes & Metabolism
DX: C73 Malignant neoplasm of thyroid gland (principal)
CPT/HCPCS: 79005; A9517

== ENCOUNTER → 2023-01-05 | Outpatient (CLI) | payer MEDICARE, MEDICAID, SELFPAY ==
--- NOTE | 2023-01-05 11:57 | NM_ITS ---
CLINICAL: 52-year-old female with history of thyroid carcinoma presenting for post ablation I-131 whole body scintigraphy. I-131 WHOLE BODY SCINTIGRAPHY COMPARISON: None available FINDINGS: Following the oral administration of 30.0 mCi of I-131, whole body images obtained at 96 hours post radiopharmaceutical administration reveal: 1. There is increased radiopharmaceutical concentration defined in the anterior thyroid bed. 2. Normal physiologic distribution of the radiopharmaceutical is identified in the visualized intestinal tract, oral cavity and urinary bladder. NM/Thyroid Whole Body I-131 Scan IMPRESSION: 1. Enhanced radiopharmaceutical defined in the anterior neck-thyroid bed is commensurate with visualization of the thyroid remnant. 2. There is no scintigraphic evidence of iodine avid distant metastatic disease on the current examination. Electronically Signed: Kevin Torres, at 12:08 EDT ,
== END | disposition home or self-care (01) ==
LOC: NM 11:56
PROVIDERS: PCP Registered Nurse; Referring Provider Internal Medicine Endocrinology, Diabetes & Metabolism; Visit Provider Internal Medicine Endocrinology, Diabetes & Metabolism
DX: C73 Malignant neoplasm of thyroid gland (principal)
CPT/HCPCS: 78018

== ENCOUNTER → 2023-04-19 | Outpatient (CLI) | payer MEDICARE, MEDICAID, SELFPAY ==
--- NOTE | 2023-04-19 14:29 | CT_ITS ---
INDICATION: h/o B/L pulmonary nodules EXAMINATION: CT CHEST WITHOUT CONTRAST - CT Chest W/O Contrast Injection TECHNIQUE: Helically acquired images were obtained of the chest. A radiation dose optimization technique was used for this scan. IV Contrast dosage and agent: None. COMPARISON: CTA of the chest February 08, 2015 FINDINGS: LUNGS, PLEURA AND LARGE AIRWAYS: Lungs are clear and well expanded. There is reticulonodular interstitial scarring in the superior segment of the right lower lobe stable since prior study.. No focal nodules are identified. No pleural effusion or thickening. No pneumothorax. THYROID: No thyroid lesions. HEART AND PERICARDIUM: Heart size is normal. No pericardial effusion. CORONARY ARTERIES: Coronary artery calcification VESSELS: Minor atherosclerotic changes of the aorta without evidence for aneurysm MEDIASTINUM AND PRAKASH: No mediastinal or hilar adenopathy. Esophagus is unremarkable. Large hiatal hernia is noted. UPPER ABDOMEN: Postsurgical changes of the stomach.. BONES: Dorsal spine demonstrates spondylosis No suspicious lytic or blastic abnormality. CT/Chest without Contrast IMPRESSION: Stable appearance to spiculated density in the right lower lobe consistent with scarring. No significant change since prior exam Electronically Signed: Luis Miguel Mendoza MD at 21:29 EDT ,
== END | disposition home or self-care (01) ==
LOC: CT 14:25
PROVIDERS: PCP Registered Nurse; Referring Provider Internal Medicine Critical Care Medicine; Visit Provider Internal Medicine Critical Care Medicine
DX: R91.1 Solitary pulmonary nodule (principal)
CPT/HCPCS: 71250

== ENCOUNTER 2023-08-10 22:03 | Emergency (ER) | payer MEDICARE, MEDICAID, SELFPAY ==
[2023-08-10 22:04] VITALS: BP 180/90; PULSE 120; RESP 20; TEMP 36.8; O2SAT 97
[2023-08-10 22:29] LABS: Absolute Lymphocyte Count 0.59 X10^3/uL (0.83-4.51); Absolute Neutrophil Count 5.8 X10^3/uL (2.0-7.7); Basophil# 0.05 X10^3/uL; Basophil% 0.7 % (0-1); Eosinophil# 0.19 X10^3/uL; Eosinophils% 2.6 % (0-5); Hemoglobin 13.3 g/dL (12.0-15.0); Lymphocyte # 0.59 X10^3/ul (0.83-4.51); Mean Corp Hgb Conc 32.4 g/dL (32-36); Mean Corpuscular Volume 83.2 fL (81-99); Mean Platelet Vol. 8.9 fl (6.2-12.0); Monocyte# 0.73 X10^3/uL; Monocyte% 9.9 % (0-10); NRBC Flagged by Analyzer 0 % (0-5); Neutrophil # 5.81 X10^3/uL (2.7-7.7); Neutrophil % 78.5 % (47-70); POSITIVE DIFFERENTIAL YES; Platelet Count 300 K/mm3 (150-450); RBC Distribution Width CV 13.8 % (11.6-14.6); RBC Distribution Width SD 41.8 fl (35.1-43.9); Red Blood Count 4.93 M/mm3 (4.2-5.4); White Blood Count 7.4 K/mm3 (4.4-11.0)
[2023-08-10 22:35] VITALS: BMI 37.8
[2023-08-10 22:42] LABS: Anion Gap 3 (5-15); BUN 18 mg/dL (7-18); BUN/Creat Ratio 19.6 RATIO (10-20); Calcium,Total 9.1 mg/dL (8.5-10.1); Chloride 102 mmol/L (98-107); Creatinine, Serum 0.92 mg/dL (0.55-1.02); EST Glomerular Filtration Rate 68 mL/min (>60); Est Glom Filt Rate - Afr Amer 83 mL/min (>60); Glucose 109 mg/dL (74-106); Potassium 4.3 mmol/L (3.5-5.1); Sodium Level 136 mmol/L (136-145)
[2023-08-10 23:04] LABS: Differential Indicated SCAN CRITERIA MET
[2023-08-10 23:09] LABS: Differential Comment SCANNED
[2023-08-10 23:10] LABS: International Normalized Ratio 1.9; Prothrombin Time (Protime)PT. 21.6 SECONDS (11.7-14.9)
[2023-08-10 23:16] LABS: ALB/GLOB Ratio 0.8 RATIO (0.9-2.4); AST(SGOT) 15 U/L (15-37); Alanine Aminotransfer ALT/SGPT 17 U/L (13-56); Albumin, Serum 3.6 g/dL (3.2-5.0); Alkaline Phosphatase 102 U/L (45-117); Globulin 4.7 g/dL (2.2-4.2); Protein, Total 8.3 g/dL (6.4-8.2)
[2023-08-10 23:36] LABS: Troponin-I HS (w/2H Reflex) 6 pg/mL (3.0-54.0)
--- NOTE | 2023-08-10 23:36 | RAD_ITS ---
EXAM: XR CHEST, 1 VIEW CLINICAL INDICATION: chest pain TECHNIQUE: Frontal view of the chest. COMPARISON: Previous chest radiographs of 07/06/2022 and 08/27/2015. Chest CT of 04/19/2023. FINDINGS: LUNGS AND PLEURAL SPACES: Unremarkable. The lungs are not hyperinflated. No consolidation or edema. No pneumothorax. No effusion. HEART: Unremarkable. Cardiac silhouette not enlarged. Normal pulmonary vasculature. MEDIASTINUM: Gas-filled retrocardiac small hiatal hernia again noted, unchanged in size. No mediastinal widening. Trachea is midline. BONES/JOINTS: Old right rib fractures again noted. No acute osseous abnormality. SOFT TISSUES: Unremarkable. RAD/Chest 1 View (Portable) IMPRESSION: No significant interval change. Small hiatal hernia again noted. No acute cardiopulmonary disease process identified. Electronically Signed: Cisco Ibanez MD at 0:00 EST ,
[2023-08-10 23:48] VITALS: PULSE 122; RESP 22; O2SAT 94
[2023-08-11] MEDS: Acetaminophen 325 MG Tablet 650 MG PO (01:11)
[2023-08-11] MEDS: Albuterol Sulfate 8 gm Inhaler (60 puffs) 4 PUFF INHALATION (01:12)
[2023-08-11 01:20] LABS: Reflex Troponin-HS? (from REC) Y
[2023-08-11 01:39] LABS: Troponin-I HS 6 pg/mL (3.0-54.0)
--- NOTE | 2023-08-11 01:56 | EDS_ITS ---
HPI History of Present Illness Chief Complaint: Shortness of Breath Narrative Narrative: 53-year-old female multiple medical problems including asthma and anxiety, presents with shortness of breath. She was diagnosed with COVID earlier today. She states she is also having chest pain and tightness. It is more of a pressure sensation. She has been using her inhaler at home. She presents because of the chest pain, she also has headaches and earaches and nasal congestion associated with her COVID. Additionally, she states she has a history of pulmonary emboli and is on warfarin and has at home INR machine that she checks regularly. [facility] Medical History Anxiety Asthma Diabetes mellitus type 2 in obese Diabetic neuropathy DJD (degenerative joint disease) DM2 (diabetes mellitus, type 2) Fatty liver disease, nonalcoholic GERD (gastroesophageal reflux disease) history of R lung abscess Histrionic personality disorder HLD (hyperlipidemia) HTN (hypertension) Hypercoagulable state Hypothyroidism Morbid obesity Narcotic dependence Obesity EDITH treated with BiPAP possible SLE Pulmonary embolism Thyroid cancer Home Medications pantoprazole 20 mg tablet,delayed release 40 mg PO BID gerd 01/15/14 [History Last Taken 07/06/22] potassium chloride 20 mEq tablet,extended release(part/cryst) 10 meq PO DAILY supplement 01/15/14 [History Last Taken 07/05/22] calcium carbonate 600 mg calcium (1,500 mg) tablet 600 mg PO PRN PRN Gastric Reflux 08/27/15 [History Last Taken 07/05/22] baclofen 10 mg tablet 10 mg PO TID PRN Back Pain 11/22/18 [History Last Taken 2 Weeks Ago ~06/22/22] buspirone 10 mg tablet 10 mg PO TID neuropathy 11/22/18 [History Last Taken 07/06/22] famotidine 20 mg tablet 20 mg PO DAILY gerd 07/06/22 [History Last Taken 07/05/22] nortriptyline 25 mg capsule 50 mg PO DAILY neuropathy 07/06/22 [History Last Taken 07/05/22] sumatriptan succinate 50 mg tablet 50 mg PO PRN PRN Migraine Headache 07/06/22 [History Last Taken 1 Week Ago ~06/29/22] warfarin 7.5 mg tablet 7.5 mg PO DAILY blood clots 11/03/22 [History Last Taken 07/04/22] hydroxyzine HCl 10 mg tablet 10 mg PO BID PRN Anxiety 07/07/22 [History Last Taken Unknown] vitamin D3 25 mcg-vitamin K2 20 mcg-olive leaf extract 250 mg capsule cap PO 12/12/22 [History Last Taken Unknown] levothyroxine 200 mcg tablet 200 mcg PO DAILY #90 tabs 06/12/23 [Rx Last Taken Unknown] dulaglutide 3 mg/0.5 mL subcutaneous pen injector (Trulicity) 3 mg (0.5 mL) subcut QWEEK #2 mL 06/18/23 [Rx Last Taken Unknown] albuterol sulfate 90 mcg/actuation aerosol inhaler (Ventolin HFA) 2 puff inhalation PRN PRN Shortness Of Breath #2 ea 08/08/23 [Rx Last Taken Unknown] cetirizine 10 mg tablet (All Day Allergy (cetirizine)) 10 mg PO DAILY allergies #90 tabs 08/08/23 [Rx Last Taken Unknown] fluticasone propionate 50 mcg/actuation nasal spray,suspension 2 spray intranasal DAILY allergies #16 grams 08/08/23 [Rx Last Taken Unknown] mometasone-formoterol HFA 200 mcg-5 mcg/actuation aerosol inhaler (Dulera) 2 puff inhalation BID sob #3 ea 08/08/23 [Rx Last Taken Unknown] oxycodone 5 mg tablet 5 mg PO PRN 08/08/23 [History Last Taken Unknown] sennosides 8.6 mg-docusate sodium 50 mg tablet (Stimulant Laxative Plus) 1 tab- cap PO BID PRN 08/08/23 [History Last Taken Unknown] sucralfate 1 gram tablet 1 g PO TID 08/08/23 [History Last Taken Unknown] tiotropium bromide 2.5 mcg/actuation mist for inhalation (Spiriva Respimat) 5 mcg inhalation DAILY #3 ea 08/08/23 [Rx Last Taken Unknown] Allergy/AdvReac Type Severity Reaction Status Date / Time acetaminophen [From Vicodin] Allergy Rash Verified 08/10/23 22:06 cefazolin sodium [From Ancef] Allergy Rash Verified 08/10/23 22:06 diphenhydramine HCl Allergy Rash Verified 08/10/23 22:06 [From Benadryl] hydrocodone bitartrate Allergy Rash Verified 08/10/23 22:06 [From Vicodin] morphine Allergy Rash Verified 08/10/23 22:06 tramadol Allergy Rash Verified 08/10/23 22:06 Opioids - Morphine Analogues AdvReac Other Verified 08/10/23 22:06 Family History Mother Asthma Breast cancer Thyroid disorder High cholesterol Father Arthritis Cancer Prostate and lung cancer Hypertension Other Anemia Anesthesia complication Anxiety Autoimmune disorder Blood clot in vein Diabetes Myocardial infarction Osteoporosis Respiratory disease STD (sexually transmitted disease) Severe allergy Surgical History History of bariatric surgery History of History of carpal tunnel release History of foot surgery History of hysterectomy History of partial thyroidectomy Social History Smoking Status: Former smoker how long ago did patient quit smoking: Quit 25 yrs prior, smoked from age 22 until quit, 1/2-1 ppd. alcohol intake: current alcohol intake frequency: 0-2 drinks per day substance use type: does not use what type of physical activity do you participate in: none ROS ROS ED ROS Narrative Constitutional: No fever, no chills. HEENT: No sore throat. No neck pain. No loss of vision. Positive rhinorrhea and nasal congestion. Cardiovascular: No chest pain. No palpitations. No pedal edema. Respiratory: Positive cough, positive shortness of breath. Abdominal: No abdominal pain. No nausea. No vomiting. Genitourinary: No dysuria. No hematuria. Musculoskeletal: No myalgias. No arthralgias. Neurologic: No headaches. No dizziness. No lightheadedness. Skin: No rash. No change in color. Psychiatric: No depression. No anxiety. EXAM Physical Exam Narrative Exam Narrative: Afebrile. Vital signs noted. HEENT: Normocephalic. Atraumatic. PERRL, EOMI. Neck soft and supple. No point tenderness or step off. Cardiovascular: Regular rate and rhythm. No murmurs, rubs, or gallops appreciated. Respiratory: No tachypnea. Lungs clear to auscultation bilaterally. Gastrointestinal: Abdomen soft, nontender, with normoactive bowel sounds. No rebound or guarding. Neurological: Awake. Alert. Nonfocal, nonlateralizing. Skin: No rash. Normal color. No pallor. Musculoskeletal: No pedal edema. Full range of motion extremities. Const Vital Signs: 08/10/23 22:04 08/10/23 22:30 08/10/23 22:36 Temperature 98.3 F Temperature Source Temporal Pulse Rate 120 H Respiratory Rate 20 H Respiratory Effort Labored Respiratory Pattern Tachypnea Blood Pressure 180/90 H Blood Pressure Mean 120 Pulse Ox 97 Oxygen Delivery Method Room Air Room Air 08/10/23 23:48 Temperature Temperature Source Pulse Rate 122 H Respiratory Rate 22 H Respiratory Effort Respiratory Pattern Blood Pressure Blood Pressure Mean Pulse Ox 94 Oxygen Delivery Method Room Air MDM MDM MDM Narrative Medical decision making narrative: Comprehensive workup was pursued. Concern would be for COVID-pneumonia. She is satting 94% on room air. EKG was obtained which demonstrates sinus tachycardia at 132 bpm without ectopy or acute ST changes. No STEMI. I do feel that she has a baseline tachycardia. I reviewed her laboratory work and she has normal white count of 7.4, hemoglobin 13.3, hematocrit 41.0, platelet count 300. INR is slightly subtherapeutic at 1.9. Creatinine normal at 0.92, BUN of 18. G lucose is appropriately elevated at 109 with a normal anion gap/low at 3. Chest x-ray in 1 view interpreted by myself shows no evidence of multifocal pneumonia or pneumothorax. I reviewed the radiology report which confirms my independent interpretation. Additionally, her initial high-sensitivity troponin is 6 with a repeat at 2 hours also 6. I do feel that cardiac ischemia has been ruled out. She was given an albuterol MDI which started to make her feel better. I do not feel she needs a shot of Lovenox and she will repeat her INR in a few days as even if she did have a pulmonary embolism, she is being treated with Coumadin. She is not hypoxic so I do not feel she needs dexamethasone I do not feel she requires admission. Initially and additionally we discussed the use of Paxlovid and she declined. I feel she can be discharged to follow-up with her primary care provider. Return instructions to the emergency department were reviewed. Disposition is discharged home in stable condition. History & Record Review Discussion w/independent historian: Patient Lab Data Attestation: I reviewed the patient's lab results. Labs: Laboratory Results - last 24 hr 08/10/23 08/11/23 22:20 00:50 WBC 7.4 RBC 4.93 Hgb 13.3 Hct 41.0 MCV 83.2 MCH 27.0 MCHC 32.4 RDW Std Deviation 41.8 RDW Coeff of Santhosh 13.8 Plt Count 300 MPV 8.9 Immature Gran % (Auto) 0.300 Neut % (Auto) 78.5 H Lymph % (Auto) 8.0 L Donley % (Auto) 9.9 Eos % (Auto) 2.6 Baso % (Auto) 0.7 Absolute Neuts (auto) 5.8 Absolute Lymphs (auto) 0.59 L Nucleated RBC % 0 Differential Comment SCANNED PT 21.6 H INR 1.9 Sodium 136 Potassium 4.3 Chloride 102 Carbon Dioxide 31.0 Anion Gap 3 L BUN 18 Creatinine 0.92 Estim Creat Clear Calc 75.60 Est GFR (MDRD) Af Amer 83 Est GFR (MDRD) Non-Af 68 BUN/Creatinine Ratio 19.6 Glucose 109 H Calcium 9.1 Total Bilirubin 0.20 AST 15 ALT 17 Alkaline Phosphatase 102 Troponin I High Sens 6 6 Total Protein 8.3 H Albumin 3.6 Globulin 4.7 H Albumin/Globulin Ratio 0.8 L Radiography Diagnostic Testing: Clinical Impression(s) from Imaging Studies Chest X-Ray 08/10/23 23:36 IMPRESSION: No significant interval change. Small hiatal hernia again noted. No acute cardiopulmonary disease process identified. Electronically Signed: Cisco Ibanez MD at 0:00 EST , Discharge Plan Triage Chief Complaint: Shortness of Breath ED Provider: Rudolph Hua Dx/Rx/DC Orders Clinical Impression: COVID, Shortness of breath, Chest pain Instructions: Coronavirus Disease 2019 (COVID-19): Caring for Yourself or Others, ED Chest Pain, Uncertain Cause, ED Dyspnea Prescriptions: No Action baclofen 10 mg tablet 10 mg PO TID PRN (Reason: Back Pain) buspirone 10 mg tablet 10 mg PO TID vit D3-vit K2-olive leaf ext 25 mcg-20 mcg- 250 mg capsule PO levothyroxine 200 mcg tablet 200 mcg PO DAILY Qty: 90 3RF sennosides-docusate sodium [Stimulant Laxative Plus] 8.6-50 mg tablet 1 tab-cap PO BID PRN Patient Comments: TAKE ONE TABLET BY MOUTH TWICE DAILY NEEDED FOR CONSTIPATION oxycodone 5 mg tablet 5 mg PO PRN Patient Comments: TAKE ONE TABLET BY MOUTH EVERY 4 HOURS NEEDED FOR PAIN sucralfate 1 gram tablet 1 g PO TID Patient Comments: TAKE ONE TABLET BY MOUTH BEFORE MEALS AND AT BEDTIME Dulera 200-5 mcg/actuation HFA aerosol inhaler 2 puff INHALATION BID Qty: 3 3RF fluticasone propionate 50 mcg/actuation spray,suspension 2 spray intranasal DAILY Qty: 16 11RF Spiriva Respimat 2.5 mcg/actuation mist 5 mcg inhalation DAILY Qty: 3 3RF albuterol sulfate [Ventolin HFA] 90 mcg/actuation HFA aerosol inhaler 2 puff INHALATION PRN PRN (Reason: Shortness Of Breath) Qty: 2 12RF cetirizine [All Day Allergy (cetirizine)] 10 mg tablet 10 mg PO DAILY Qty: 90 3RF pantoprazole 20 MG tablet 40 mg PO BID Patient Comments: acid reflux potassium chloride 20 MEQ tablet 10 meq PO DAILY Patient Comments: supplement calcium carbonate 600 MG tablet 600 mg PO PRN PRN (Reason: Gastric Reflux) warfarin 7.5 mg Tablet 7.5 mg PO DAILY Rx Instructions: tues, thurs, fri, sun famotidine 20 mg tablet 20 mg PO DAILY Patient Comments: TAKE ONE TABLET BY MOUTH AT BEDTIME NEEDED sumatriptan succinate 50 mg tablet 50 mg PO PRN PRN (Reason: Migraine Headache) Patient Comments: TAKE ONE TABLET BY MOUTH AT ONSET of migraine HEADACHE. MAY REPEAT DOSE if no RELIEF in two hours. nortriptyline 25 mg capsule 50 mg PO DAILY Patient Comments: TAKE ONE CAPSULE BY MOUTH AT BEDTIME hydroxyzine HCl 10 mg tablet 10 mg PO BID PRN (Reason: Anxiety) Patient Comments: TAKE ONE TABLET BY MOUTH TWICE DAILY NEEDED Trulicity 3 mg/0.5 mL pen injector 3 mg subcut QWEEK Qty: 2 3RF Primary Care Provider: Roseanna Jean NP Referrals: Roseanna Jean NP, EMERGENCY CARE ATTENDANT-C [Primary Care Provider] - 1 Week if not improving Disposition Disposition: Home, Self Care
[2023-08-11 02:07] VITALS: PULSE 118; RESP 21; O2SAT 95
== END 2023-08-11 02:08 | disposition home or self-care (01) ==
PROVIDERS: Emergency Provider Emergency Medicine; PCP Registered Nurse; Visit Provider Emergency Medicine
DX: U07.1 COVID-19 (principal); E11.40 Type 2 diabetes mellitus with diabetic neuropathy, unspecified; R06.02 Shortness of breath; R07.9 Chest pain, unspecified; G47.33 Obstructive sleep apnea (adult) (pediatric); Z86.711 Personal history of pulmonary embolism; Z87.891 Personal history of nicotine dependence
CPT/HCPCS: 71045; 80053; 84484; 85025; 85610; 87811; 93005; 94760; 99282; A4216

== ENCOUNTER → 2023-12-13 | Outpatient (CLI) | payer MEDICARE, MEDICAID, SELFPAY ==
[2023-12-13 12:46] LABS: Microalbumin,Random Urine 8.5 mg/L (NO RANGE EST.); Microalbumin:Creatinine Ratio 7.6 mg/g CRE (<30 mg/g CRE)
[2023-12-13 12:58] LABS: ALB/GLOB Ratio 0.8 RATIO (0.9-2.4); AST(SGOT) 19 U/L (15-37); Alanine Aminotransfer ALT/SGPT 20 U/L (13-56); Albumin, Serum 3.5 g/dL (3.2-5.0); Alkaline Phosphatase 114 U/L (45-117); Anion Gap 3 (5-15); BUN 16 mg/dL (7-18); Chloride 105 mmol/L (98-107); Cholesterol 223 mg/dL (200); EST Glomerular Filtration Rate 94 mL/min (>60); Est Glom Filt Rate - Afr Amer 114 mL/min (>60); Globulin 4.2 g/dL (2.2-4.2); Glucose 83 mg/dL (74-106); High Density Lipoprotein 62 mg/dL; Potassium 4.4 mmol/L (3.5-5.1); Protein, Total 7.7 g/dL (6.4-8.2); Sodium Level 136 mmol/L (136-145); T4 Free Direct 1.26 ng/dL (0.76-1.46); Thyroid Stim Hormone (TSH) 1.55 uIU/mL (0.358-3.74); Triglycerides 174 mg/dL; Very Low Density Lipoprotein 35 mg/dL (5-40)
[2023-12-15 18:07] LABS: Anti-Thyroglobulin AB < 1.0 IU/mL (0.0-0.9); Thyroglobulin, Serum Qt. 1.1 ng/mL (1.5-38.5)
== END | disposition home or self-care (01) ==
LOC: LAB 11:35
PROVIDERS: PCP Registered Nurse; Referring Provider Internal Medicine Endocrinology, Diabetes & Metabolism; Visit Provider Internal Medicine Endocrinology, Diabetes & Metabolism
DX: E11.9 Type 2 diabetes mellitus without complications (principal); C73 Malignant neoplasm of thyroid gland; E66.9 Obesity, unspecified; E03.9 Hypothyroidism, unspecified
CPT/HCPCS: 36415; 80053; 80061; 82043; 82570; 84432; 84439; 84443; 86800